=== PATIENT | female | born 1950 | race Caucasian/White ===

== ENCOUNTER 2017-12-16 17:53 | Inpatient (IN) | payer MEDICARE, MEDICAID ==
[~2017-12-16] VITALS: Ht 162.6 cm; Wt 58.5 kg
[2017-12-16 22:15] VITALS: BP 128/55
[2017-12-16] MEDS ORDERED: GLIM4TAB3 PO (22:44)
[2017-12-16] MEDS ORDERED: LEVO50TA8 PO (22:44)
[2017-12-16] MEDS ORDERED: LINA5TAB PO (22:44)
[2017-12-16] MEDS ORDERED: FERR325T23 PO (22:44)
[2017-12-16] MEDS ORDERED: CHOL50002 PO (22:44)
[2017-12-16] MEDS ORDERED: ESOM40CA PO ×2 (22:44)
[2017-12-16] MEDS ORDERED: ATOR20TA PO (22:44)
[2017-12-16] MEDS ORDERED: ICOS1CAP PO (22:44)
[2017-12-16] MEDS ORDERED: PIOG15TA8 PO (22:44)
[2017-12-16] MEDS ORDERED: VALS320T2 PO (22:44)
[2017-12-16] MEDS ORDERED: METF-440 PO (22:44)
[2017-12-16] MEDS ORDERED: CARV20CP PO (22:44)
[2017-12-17] MEDS ORDERED: ONDANSETRON 4 MG/2 ML VIAL IV PRN (00:15)
[2017-12-17] MEDS ORDERED: ZOLPIDEM 5 MG TABLET PO PRN (00:15)
[2017-12-17] MEDS ORDERED: Z GUARD REMEDY PASTE 57 GM TUBE TOP PRN (00:15)
[2017-12-17] MEDS ORDERED: MAGNESIUM HYDROXIDE 30 ML LIQUID UDC PO PRN (00:15)
[2017-12-17] MEDS ORDERED: ACETAMINOPHEN 325 MG TABLET PO PRN (00:15)
[2017-12-17 05:26] VITALS: BP 124/64
[2017-12-17] MEDS: LEVOTHYROXINE SODIUM 50 MCG TABLET PO SCH ×2 (07:00→07:30)
[2017-12-17] MEDS ORDERED: LEVOTHYROXINE SODIUM 50 MCG TABLET PO SCH (07:30)
[2017-12-17] MEDS ORDERED: PANTOPRAZOLE SODIUM 40 MG TABLET.DR PO SCH (07:30)
[2017-12-17] MEDS: FERROUS SULFATE 325 MG TABEC PO SCH (08:47)
[2017-12-17] MEDS: LINAGLIPTIN 5 MG TABLET PO SCH (08:47)
[2017-12-17] MEDS: GLIMEPIRIDE 2 MG TABLET PO SCH (08:48)
[2017-12-17] MEDS: CARVEDILOL 6.25 MG TABLET PO SCH ×2 (08:48→18:12)
[2017-12-17] MEDS ORDERED: Medication Not On Formulary EA (Icosapent Ethyl (Vascepa) 1 GM) PO SCH (09:00)
[2017-12-17] MEDS ORDERED: VALSARTAN 160 MG TABLET PO SCH (09:00)
[2017-12-17] MEDS ORDERED: CHOLECALCIFEROL PO SCH (09:00)
[2017-12-17] MEDS: PIOGLITAZONE HCL 15 MG TABLET PO SCH (10:08)
[2017-12-17] MEDS ORDERED: CHOL10002 PO (16:13)
[2017-12-17] MEDS ORDERED: METF500T PO (16:22)
[2017-12-17] MEDS ORDERED: METF-440 PO (16:22)
[2017-12-17 16:37] VITALS: BP 122/65
[2017-12-17] MEDS: METFORMIN HCL 500 MG TABLET PO SCH (18:04)
[2017-12-17] MEDS: DOCUSATE SODIUM 100 MG CAPSULE PO SCH (20:25)
[2017-12-17] MEDS: ATORVASTATIN 20 MG TABLET PO SCH (20:25)
[2017-12-17 20:39] VITALS: BP 101/57
[2017-12-18] MEDS: LEVOTHYROXINE SODIUM 50 MCG TABLET PO SCH (06:30)
[2017-12-18] MEDS: PANTOPRAZOLE SODIUM 40 MG TABLET.DR PO SCH (06:30)
[2017-12-18 06:50] VITALS: BP 100/60
[2017-12-18] MEDS ORDERED: BLOOD SUGAR DIAGNOSTIC 1 EACH STRIP VI SCH (07:00)
[2017-12-18 08:00] VITALS: BP 115/63
[2017-12-18] MEDS: FERROUS SULFATE 325 MG TABEC PO SCH (08:48)
[2017-12-18] MEDS: CHOLECALCIFEROL 1,000 UNIT TABLET PO SCH (08:48)
[2017-12-18] MEDS: LINAGLIPTIN 5 MG TABLET PO SCH (08:48)
[2017-12-18] MEDS: GLIMEPIRIDE 2 MG TABLET PO SCH (08:49)
[2017-12-18] MEDS: PIOGLITAZONE HCL 15 MG TABLET PO SCH (08:50)
[2017-12-18] MEDS ORDERED: LOSARTAN POTASSIUM 50 MG TABLET PO SCH (09:00)
[2017-12-18] MEDS: CARVEDILOL 6.25 MG TABLET PO SCH ×2 (10:32→17:30)
[2017-12-18] MEDS: VALSARTAN 160 MG TABLET PO SCH (10:32)
[2017-12-18 17:06] VITALS: BP 95/49
[2017-12-18] MEDS: METFORMIN HCL 500 MG TABLET PO SCH (17:29)
[2017-12-18 20:00] VITALS: BP 89/42
[2017-12-18] MEDS: ATORVASTATIN 20 MG TABLET PO SCH (20:50)
[2017-12-18] MEDS: DOCUSATE SODIUM 100 MG CAPSULE PO SCH (20:52)
[2017-12-19 06:04] VITALS: BP 122/55
[2017-12-19] MEDS: PANTOPRAZOLE SODIUM 40 MG TABLET.DR PO SCH (06:28)
[2017-12-19] MEDS: LEVOTHYROXINE SODIUM 50 MCG TABLET PO SCH (06:30)
[2017-12-19 07:20] LABS: HEMATOCRIT 31.8 % (31.2-41.9); HEMOGLOBIN 10.8 g/dL (10.9-14.3); MEAN CORPUSCULAR HGB CONC 34 g/dL (32.3-35.6); MEAN CORPUSCULAR VOLUME 88.2 fL (75.5-95.3); NEUTROPHILS % (AUTO) 67.9 % (38.5-71.5); PLATELET COUNT (AUTO) 183 K/uL (179-408); WHITE BLOOD COUNT (AUTO) 12.1 K/uL (3.8-11.8)
[2017-12-19 07:21] LABS: BASOPHILS # (AUTO) 0.1 K/uL (0.0-8.0); BASOPHILS % (AUTO) 0.8 % (0.0-2.0); EOSINOPHILS # (AUTO) 0.4 K/uL (0.0-0.7); EOSINOPHILS % (AUTO) 3.2 % (0.0-7.0); LYMPHOCYTES # (AUTO) 2.6 K/uL (20.0-40.0); MONOCYTES # (AUTO) 0.9 K/uL (2.0-10.0); MONOCYTES % (AUTO) 7.1 % (0.0-11.0); NEUTROPHILS # (AUTO) 8.2 K/uL (1.8-8.9)
[2017-12-19 07:32] LABS: CREATININE 0.9 mg/dL (0.6-1.3); POTASSIUM 3.8 mmol/L (3.5-5.1)
[2017-12-19 08:00] VITALS: BP 123/69
[2017-12-19] MEDS: CHOLECALCIFEROL 1,000 UNIT TABLET PO SCH (09:05)
[2017-12-19] MEDS: GLIMEPIRIDE 2 MG TABLET PO SCH (09:06)
[2017-12-19] MEDS: LINAGLIPTIN 5 MG TABLET PO SCH (09:06)
[2017-12-19] MEDS: FERROUS SULFATE 325 MG TABEC PO SCH (09:06)
[2017-12-19] MEDS: VALSARTAN 160 MG TABLET PO SCH (09:07)
[2017-12-19] MEDS: CARVEDILOL 6.25 MG TABLET PO SCH ×2 (09:08→17:26)
[2017-12-19] MEDS: PIOGLITAZONE HCL 15 MG TABLET PO SCH (09:08)
[2017-12-19] MEDS ORDERED: VALS320T2 PO (15:05)
[2017-12-19 15:50] VITALS: BP 87/48
[2017-12-19] MEDS: METFORMIN HCL 500 MG TABLET PO SCH (17:25)
[2017-12-19] MEDS: DOCUSATE SODIUM 100 MG CAPSULE PO SCH (20:36)
[2017-12-19] MEDS: ATORVASTATIN 20 MG TABLET PO SCH (20:36)
[2017-12-19 21:03] VITALS: BP 93/45
[2017-12-20 04:30] VITALS: BP 107/49
[2017-12-20] MEDS: PANTOPRAZOLE SODIUM 40 MG TABLET.DR PO SCH (06:15)
[2017-12-20] MEDS: LEVOTHYROXINE SODIUM 50 MCG TABLET PO SCH (06:30)
[2017-12-20 08:00] VITALS: BP 141/72
[2017-12-20] MEDS: PIOGLITAZONE HCL 15 MG TABLET PO SCH (09:30)
[2017-12-20] MEDS: LINAGLIPTIN 5 MG TABLET PO SCH (09:31)
[2017-12-20] MEDS: FERROUS SULFATE 325 MG TABEC PO SCH (09:31)
[2017-12-20] MEDS: GLIMEPIRIDE 2 MG TABLET PO SCH (09:31)
[2017-12-20] MEDS: CARVEDILOL 6.25 MG TABLET PO SCH ×2 (09:32→19:12)
[2017-12-20] MEDS: CHOLECALCIFEROL 1,000 UNIT TABLET PO SCH (09:32)
[2017-12-20] MEDS: VALSARTAN 160 MG TABLET PO SCH (09:33)
[2017-12-20 15:47] VITALS: BP 105/55
[2017-12-20] MEDS: METFORMIN HCL 500 MG TABLET PO SCH (19:11)
[2017-12-20 20:03] VITALS: BP 99/50
[2017-12-20] MEDS: ATORVASTATIN 20 MG TABLET PO SCH (20:15)
[2017-12-20] MEDS: DOCUSATE SODIUM 100 MG CAPSULE PO SCH (20:21)
[2017-12-21] MEDS: PANTOPRAZOLE SODIUM 40 MG TABLET.DR PO SCH (06:00)
[2017-12-21 06:42] VITALS: BP 139/65
[2017-12-21] MEDS: LEVOTHYROXINE SODIUM 50 MCG TABLET PO SCH (06:51)
[2017-12-21 07:47] LABS: BASOPHILS # (AUTO) 0.1 K/uL (0.0-8.0); EOSINOPHILS # (AUTO) 0.2 K/uL (0.0-0.7); EOSINOPHILS % (AUTO) 2.8 % (0.0-7.0); HEMATOCRIT 31.1 % (31.2-41.9); HEMOGLOBIN 10.8 g/dL (10.9-14.3); LYMPHOCYTES % (AUTO) 22.9 % (20.5-51.5); MEAN CORPUSCULAR HEMOGLOBIN 30.4 uug (24.7-32.8); MEAN CORPUSCULAR HGB CONC 35 g/dL (32.3-35.6); MEAN CORPUSCULAR VOLUME 87.8 fL (75.5-95.3); MONOCYTES # (AUTO) 0.6 K/uL (2.0-10.0); NEUTROPHILS # (AUTO) 5.7 K/uL (1.8-8.9); NEUTROPHILS % (AUTO) 66.3 % (38.5-71.5); PLATELET COUNT (AUTO) 180 K/uL (179-408); RED BLOOD CELL COUNT(AUTO) 3.54 MIL/uL (3.63-4.92); WHITE BLOOD COUNT (AUTO) 8.6 K/uL (3.8-11.8)
[2017-12-21 07:52] LABS: CREATININE 0.8 mg/dL (0.6-1.3); POTASSIUM 3.9 mmol/L (3.5-5.1)
[2017-12-21] MEDS: LINAGLIPTIN 5 MG TABLET PO SCH (08:20)
[2017-12-21] MEDS: CARVEDILOL 6.25 MG TABLET PO SCH ×2 (08:32→17:01)
[2017-12-21] MEDS: GLIMEPIRIDE 2 MG TABLET PO SCH (08:34)
[2017-12-21] MEDS: CHOLECALCIFEROL 1,000 UNIT TABLET PO SCH (08:34)
[2017-12-21] MEDS: PIOGLITAZONE HCL 15 MG TABLET PO SCH (08:35)
[2017-12-21] MEDS: VALSARTAN 160 MG TABLET PO SCH (08:35)
[2017-12-21] MEDS: FERROUS SULFATE 325 MG TABEC PO SCH (08:36)
[2017-12-21 15:24] VITALS: BP 109/61
[2017-12-21] MEDS: METFORMIN HCL 500 MG TABLET PO SCH (17:01)
[2017-12-21] MEDS: DOCUSATE SODIUM 100 MG CAPSULE PO SCH (20:11)
[2017-12-21] MEDS: ATORVASTATIN 20 MG TABLET PO SCH (20:11)
[2017-12-21 20:43] VITALS: BP 100/49
[2017-12-22 06:03] VITALS: BP 126/60
[2017-12-22] MEDS: PANTOPRAZOLE SODIUM 40 MG TABLET.DR PO SCH (06:32)
[2017-12-22] MEDS: LEVOTHYROXINE SODIUM 50 MCG TABLET PO SCH (06:32)
[2017-12-22] MEDS: FERROUS SULFATE 325 MG TABEC PO SCH (08:14)
[2017-12-22] MEDS: LINAGLIPTIN 5 MG TABLET PO SCH (08:14)
[2017-12-22] MEDS: CHOLECALCIFEROL 1,000 UNIT TABLET PO SCH (08:16)
[2017-12-22] MEDS: CARVEDILOL 6.25 MG TABLET PO SCH ×2 (08:16→17:03)
[2017-12-22] MEDS: VALSARTAN 160 MG TABLET PO SCH (08:16)
[2017-12-22] MEDS: GLIMEPIRIDE 2 MG TABLET PO SCH (08:17)
[2017-12-22] MEDS: PIOGLITAZONE HCL 15 MG TABLET PO SCH (08:17)
[2017-12-22] MEDS: METFORMIN HCL 500 MG TABLET PO SCH (17:03)
[2017-12-22 17:24] VITALS: BP 98/52
[2017-12-22 20:14] VITALS: BP 110/54
[2017-12-22] MEDS: ATORVASTATIN 20 MG TABLET PO SCH (20:24)
[2017-12-22] MEDS: DOCUSATE SODIUM 100 MG CAPSULE PO SCH (20:24)
[2017-12-23 05:06] VITALS: BP 117/67
[2017-12-23] MEDS: PANTOPRAZOLE SODIUM 40 MG TABLET.DR PO SCH (06:43)
[2017-12-23] MEDS: LEVOTHYROXINE SODIUM 50 MCG TABLET PO SCH (06:43)
[2017-12-23] MEDS: FERROUS SULFATE 325 MG TABEC PO SCH (08:11)
[2017-12-23] MEDS: VALSARTAN 160 MG TABLET PO SCH (08:11)
[2017-12-23] MEDS: PIOGLITAZONE HCL 15 MG TABLET PO SCH (08:13)
[2017-12-23] MEDS: CARVEDILOL 6.25 MG TABLET PO SCH ×2 (08:13→16:42)
[2017-12-23] MEDS: LINAGLIPTIN 5 MG TABLET PO SCH (08:13)
[2017-12-23] MEDS: GLIMEPIRIDE 2 MG TABLET PO SCH (08:14)
[2017-12-23] MEDS: CHOLECALCIFEROL 1,000 UNIT TABLET PO SCH (08:14)
[2017-12-23 08:35] LABS: BASOPHILS # (AUTO) 0.1 K/uL (0.0-8.0); BASOPHILS % (AUTO) 0.6 % (0.0-2.0); EOSINOPHILS # (AUTO) 0.5 K/uL (0.0-0.7); EOSINOPHILS % (AUTO) 4.9 % (0.0-7.0); HEMATOCRIT 31.1 % (31.2-41.9); HEMOGLOBIN 10.6 g/dL (10.9-14.3); LYMPHOCYTES # (AUTO) 2.2 K/uL (20.0-40.0); LYMPHOCYTES % (AUTO) 22.4 % (20.5-51.5); MEAN CORPUSCULAR HEMOGLOBIN 30.4 uug (24.7-32.8); MEAN CORPUSCULAR HGB CONC 34 g/dL (32.3-35.6); MEAN CORPUSCULAR VOLUME 88.8 fL (75.5-95.3); MONOCYTES # (AUTO) 0.8 K/uL (2.0-10.0); MONOCYTES % (AUTO) 7.9 % (0.0-11.0); NEUTROPHILS # (AUTO) 6.3 K/uL (1.8-8.9); NEUTROPHILS % (AUTO) 64.2 % (38.5-71.5); PLATELET COUNT (AUTO) 182 K/uL (179-408); WHITE BLOOD COUNT (AUTO) 9.8 K/uL (3.8-11.8)
[2017-12-23 08:47] LABS: CREATININE 0.9 mg/dL (0.6-1.3)
[2017-12-23] MEDS: METFORMIN HCL 500 MG TABLET PO SCH (16:43)
[2017-12-23 20:00] VITALS: BP 90/47
[2017-12-23] MEDS: ATORVASTATIN 20 MG TABLET PO SCH (20:30)
[2017-12-23] MEDS: DOCUSATE SODIUM 100 MG CAPSULE PO SCH (20:30)
[2017-12-24] MEDS: LEVOTHYROXINE SODIUM 50 MCG TABLET PO SCH (06:35)
[2017-12-24] MEDS: PANTOPRAZOLE SODIUM 40 MG TABLET.DR PO SCH (06:35)
[2017-12-24 08:00] VITALS: BP 148/67
[2017-12-24] MEDS: ASPIRIN 81 MG TAB.CHEW PO SCH (09:00)
[2017-12-24] MEDS: CHOLECALCIFEROL 1,000 UNIT TABLET PO SCH (09:00)
[2017-12-24] MEDS: VALSARTAN 160 MG TABLET PO SCH (09:01)
[2017-12-24] MEDS: GLIMEPIRIDE 2 MG TABLET PO SCH (09:02)
[2017-12-24] MEDS: LINAGLIPTIN 5 MG TABLET PO SCH (09:02)
[2017-12-24] MEDS: FERROUS SULFATE 325 MG TABEC PO SCH (09:02)
[2017-12-24] MEDS: CARVEDILOL 6.25 MG TABLET PO SCH ×2 (09:02→17:18)
[2017-12-24] MEDS: PIOGLITAZONE HCL 15 MG TABLET PO SCH (09:03)
[2017-12-24 16:00] VITALS: BP 110/64
[2017-12-24] MEDS: METFORMIN HCL 500 MG TABLET PO SCH (17:18)
[2017-12-24 20:20] VITALS: BP 102/56
[2017-12-24] MEDS: DOCUSATE SODIUM 100 MG CAPSULE PO SCH (20:27)
[2017-12-24] MEDS: ATORVASTATIN 20 MG TABLET PO SCH (20:27)
[2017-12-25 05:24] VITALS: BP 146/63
[2017-12-25] MEDS: PANTOPRAZOLE SODIUM 40 MG TABLET.DR PO SCH (06:12)
[2017-12-25] MEDS: LEVOTHYROXINE SODIUM 50 MCG TABLET PO SCH (06:12)
[2017-12-25 07:49] LABS: *BILIRUBIN,URIN NEGATIVE (NEGATIVE); *BLOOD, URINE NEGATIVE (NEGATIVE); *CLARITY,URINE CLEAR (CLEAR); *COLOR,URINE YELLOW (YELLOW); *KETONES,URINE NEGATIVE (NEGATIVE); *PROTEIN,URINE NEGATIVE (NEGATIVE); *UROBILINOGEN,URINE 0.2 E.U./dl (NORMAL); LEUKOCYTE ESTERASE ,URINE 2+ (NEGATIVE); NITRITE, URINE POSITIVE (NEGATIVE); UGLUCOSE NEGATIVE (NEGATIVE)
[2017-12-25] MEDS: PIOGLITAZONE HCL 15 MG TABLET PO SCH (08:11)
[2017-12-25] MEDS: LINAGLIPTIN 5 MG TABLET PO SCH (08:12)
[2017-12-25] MEDS: CARVEDILOL 6.25 MG TABLET PO SCH ×2 (08:12→17:04)
[2017-12-25] MEDS: GLIMEPIRIDE 2 MG TABLET PO SCH (08:12)
[2017-12-25] MEDS: CHOLECALCIFEROL 1,000 UNIT TABLET PO SCH (08:12)
[2017-12-25] MEDS: VALSARTAN 160 MG TABLET PO SCH (08:13)
[2017-12-25] MEDS: ASPIRIN 81 MG TAB.CHEW PO SCH (08:13)
[2017-12-25] MEDS: FERROUS SULFATE 325 MG TABEC PO SCH (08:13)
[2017-12-25 08:23] LABS: BACTERIA,URINE MANY /HPF (NONE SEEN); RBC,URINE 0-3 /HPF (0-3); SQUAMOUS EPITHELIAL CELL,UR FEW /HPF (NONE SEEN)
[2017-12-25] MEDS: METFORMIN HCL 500 MG TABLET PO SCH (17:03)
[2017-12-25 20:00] VITALS: BP 119/60
[2017-12-25] MEDS: ATORVASTATIN 20 MG TABLET PO SCH (20:21)
[2017-12-25] MEDS: DOCUSATE SODIUM 100 MG CAPSULE PO SCH (20:21)
[2017-12-26] MEDS: PANTOPRAZOLE SODIUM 40 MG TABLET.DR PO SCH (06:31)
[2017-12-26] MEDS: LEVOTHYROXINE SODIUM 50 MCG TABLET PO SCH (06:31)
[2017-12-26 07:26] LABS: BASOPHILS # (AUTO) 0.1 K/uL (0.0-8.0); EOSINOPHILS # (AUTO) 0.4 K/uL (0.0-0.7); EOSINOPHILS % (AUTO) 4.1 % (0.0-7.0); HEMATOCRIT 30.7 % (31.2-41.9); HEMOGLOBIN 10.5 g/dL (10.9-14.3); LYMPHOCYTES # (AUTO) 2.3 K/uL (20.0-40.0); LYMPHOCYTES % (AUTO) 26.1 % (20.5-51.5); MEAN CORPUSCULAR HEMOGLOBIN 30.2 uug (24.7-32.8); MEAN CORPUSCULAR HGB CONC 34 g/dL (32.3-35.6); MEAN CORPUSCULAR VOLUME 88.6 fL (75.5-95.3); MONOCYTES # (AUTO) 0.7 K/uL (2.0-10.0); MONOCYTES % (AUTO) 8.1 % (0.0-11.0); NEUTROPHILS # (AUTO) 5.4 K/uL (1.8-8.9); NEUTROPHILS % (AUTO) 60.7 % (38.5-71.5); PLATELET COUNT (AUTO) 184 K/uL (179-408); RED BLOOD CELL COUNT(AUTO) 3.47 MIL/uL (3.63-4.92); WHITE BLOOD COUNT (AUTO) 8.9 K/uL (3.8-11.8)
[2017-12-26 07:45] LABS: THYROID STIMULATING HORMONE 1.625 mIU/mL (0.358-3.740)
[2017-12-26 08:06] LABS: BILIRUBIN,TOTAL 0.3 mg/dL (0.2-1.0); CREATININE 0.8 mg/dL (0.6-1.3); MAGNESIUM 1.6 mg/dL (1.8-2.4); PHOSPHOROUS 3.4 mg/dL (2.5-4.9); POTASSIUM 3.8 mmol/L (3.5-5.1); TOTAL PROTEIN, SERUM 6.3 g/dL (6.4-8.2)
[2017-12-26] MEDS: CHOLECALCIFEROL 1,000 UNIT TABLET PO SCH (08:51)
[2017-12-26] MEDS: PIOGLITAZONE HCL 15 MG TABLET PO SCH (08:51)
[2017-12-26] MEDS: FERROUS SULFATE 325 MG TABEC PO SCH (08:52)
[2017-12-26] MEDS: GLIMEPIRIDE 2 MG TABLET PO SCH (08:54)
[2017-12-26] MEDS: ASPIRIN 81 MG TAB.CHEW PO SCH (08:54)
[2017-12-26] MEDS: LINAGLIPTIN 5 MG TABLET PO SCH (08:55)
[2017-12-26] MEDS: VALSARTAN 160 MG TABLET PO SCH (08:56)
[2017-12-26] MEDS: CARVEDILOL 6.25 MG TABLET PO SCH ×2 (08:57→17:10)
[2017-12-26] MEDS: NITROFURANTOIN/NITROFURAN MAC 100 MG CAPSULE PO SCH ×2 (09:30→21:04)
[2017-12-26] MEDS ORDERED: MAGNESIUM OXIDE 400 MG TABLET PO ONE (15:45)
[2017-12-26] MEDS: METFORMIN HCL 500 MG TABLET PO SCH (17:09)
[2017-12-26 19:30] VITALS: BP 102/47
[2017-12-26] MEDS: DOCUSATE SODIUM 100 MG CAPSULE PO SCH (21:04)
[2017-12-26] MEDS: ATORVASTATIN 20 MG TABLET PO SCH (21:04)
[2017-12-26] MEDS ORDERED: DEXTROSE 50% 50 ML DISP.SYRIN IV PRN (21:30)
[2017-12-26] MEDS ORDERED: INSULIN REGULAR, HUMAN 300 UNIT/3 ML VIAL SQ PRN (21:30)
[2017-12-27 04:00] VITALS: BP 150/62
[2017-12-27] MEDS: BLOOD SUGAR DIAGNOSTIC 1 EACH STRIP VI SCH ×4 (06:38→20:27)
[2017-12-27] MEDS: PANTOPRAZOLE SODIUM 40 MG TABLET.DR PO SCH (06:38)
[2017-12-27] MEDS: LEVOTHYROXINE SODIUM 50 MCG TABLET PO SCH (06:38)
[2017-12-27] MEDS: CHOLECALCIFEROL 1,000 UNIT TABLET PO SCH (08:44)
[2017-12-27] MEDS: GLIMEPIRIDE 4 MG TABLET PO SCH (08:44)
[2017-12-27] MEDS: LINAGLIPTIN 5 MG TABLET PO SCH (08:44)
[2017-12-27] MEDS: METFORMIN HCL 500 MG TABLET PO SCH ×2 (08:44→17:13)
[2017-12-27] MEDS: FERROUS SULFATE 325 MG TABEC PO SCH (08:44)
[2017-12-27] MEDS: ASPIRIN 81 MG TAB.CHEW PO SCH (08:44)
[2017-12-27] MEDS: CARVEDILOL 6.25 MG TABLET PO SCH ×2 (08:45→17:13)
[2017-12-27] MEDS: PIOGLITAZONE HCL 15 MG TABLET PO SCH (08:45)
[2017-12-27] MEDS: VALSARTAN 160 MG TABLET PO SCH (08:45)
[2017-12-27] MEDS: NITROFURANTOIN/NITROFURAN MAC 100 MG CAPSULE PO SCH ×2 (08:45→20:23)
[2017-12-27 09:00] VITALS: BP 130/75
[2017-12-27 16:25] VITALS: BP 131/64
[2017-12-27 19:43] VITALS: BP 95/47
[2017-12-27] MEDS: DOCUSATE SODIUM 100 MG CAPSULE PO SCH (20:23)
[2017-12-27] MEDS: ATORVASTATIN 20 MG TABLET PO SCH (20:23)
[2017-12-28 05:00] VITALS: BP 135/69
[2017-12-28] MEDS: PANTOPRAZOLE SODIUM 40 MG TABLET.DR PO SCH (06:52)
[2017-12-28] MEDS: LEVOTHYROXINE SODIUM 50 MCG TABLET PO SCH (06:52)
[2017-12-28] MEDS: BLOOD SUGAR DIAGNOSTIC 1 EACH STRIP VI SCH ×4 (06:55→21:52)
[2017-12-28] MEDS: CHOLECALCIFEROL 1,000 UNIT TABLET PO SCH (08:37)
[2017-12-28] MEDS: LINAGLIPTIN 5 MG TABLET PO SCH (08:39)
[2017-12-28] MEDS: VALSARTAN 160 MG TABLET PO SCH (08:39)
[2017-12-28] MEDS: FERROUS SULFATE 325 MG TABEC PO SCH (08:40)
[2017-12-28] MEDS: ASPIRIN 81 MG TAB.CHEW PO SCH (08:40)
[2017-12-28] MEDS: METFORMIN HCL 500 MG TABLET PO SCH ×2 (08:41→16:51)
[2017-12-28] MEDS: GLIMEPIRIDE 4 MG TABLET PO SCH (08:41)
[2017-12-28] MEDS: NITROFURANTOIN/NITROFURAN MAC 100 MG CAPSULE PO SCH ×2 (08:43→20:59)
[2017-12-28] MEDS: CARVEDILOL 6.25 MG TABLET PO SCH ×2 (08:43→16:51)
[2017-12-28] MEDS: PIOGLITAZONE HCL 15 MG TABLET PO SCH (08:43)
[2017-12-28 15:46] VITALS: BP 99/50
[2017-12-28 20:00] VITALS: BP 99/53
[2017-12-28] MEDS: ATORVASTATIN 20 MG TABLET PO SCH (20:59)
[2017-12-28] MEDS: DOCUSATE SODIUM 100 MG CAPSULE PO SCH (20:59)
[2017-12-29 04:00] VITALS: BP 139/74
[2017-12-29] MEDS: PANTOPRAZOLE SODIUM 40 MG TABLET.DR PO SCH (06:05)
[2017-12-29] MEDS: BLOOD SUGAR DIAGNOSTIC 1 EACH STRIP VI SCH ×2 (06:33→12:11)
[2017-12-29] MEDS: LEVOTHYROXINE SODIUM 50 MCG TABLET PO SCH (06:33)
[2017-12-29] MEDS: CHOLECALCIFEROL 1,000 UNIT TABLET PO SCH (08:52)
[2017-12-29] MEDS: FERROUS SULFATE 325 MG TABEC PO SCH (08:54)
[2017-12-29] MEDS: LINAGLIPTIN 5 MG TABLET PO SCH (08:54)
[2017-12-29] MEDS: GLIMEPIRIDE 4 MG TABLET PO SCH (08:55)
[2017-12-29] MEDS: METFORMIN HCL 500 MG TABLET PO SCH (08:55)
[2017-12-29] MEDS: PIOGLITAZONE HCL 15 MG TABLET PO SCH (08:55)
[2017-12-29] MEDS: ASPIRIN 81 MG TAB.CHEW PO SCH (08:55)
[2017-12-29] MEDS: CARVEDILOL 6.25 MG TABLET PO SCH (08:56)
[2017-12-29] MEDS: NITROFURANTOIN/NITROFURAN MAC 100 MG CAPSULE PO SCH (08:56)
[2017-12-29] MEDS ORDERED: VALSARTAN 160 MG TABLET PO SCH (09:00)
[2017-12-29 15:57] VITALS: BP 141/63
== END 2017-12-29 16:50 | disposition home health service (06) | DRG 949 ==
PROVIDERS: ADMIT Physical Medicine & Rehabilitation Pain Medicine; ATTEND Physical Medicine & Rehabilitation Pain Medicine
DX: S06.6X9D Traumatic subarachnoid hemorrhage with loss of consciousness of unspecified duration, subsequent encounter (principal); N39.0 Urinary tract infection, site not specified; D68.59 Other primary thrombophilia; G93.40 Encephalopathy, unspecified; W19.XXXD Unspecified fall, subsequent encounter; E03.9 Hypothyroidism, unspecified; E11.9 Type 2 diabetes mellitus without complications; E78.5 Hyperlipidemia, unspecified; F03.90 Unspecified dementia, unspecified severity, without behavioral disturbance, psychotic disturbance, mood disturbance, and anxiety; I10 Essential (primary) hypertension; I25.10 Atherosclerotic heart disease of native coronary artery without angina pectoris; R29.6 Repeated falls; B96.20 Unspecified Escherichia coli [E. coli] as the cause of diseases classified elsewhere; D64.9 Anemia, unspecified; Z91.81 History of falling; R26.81 Unsteadiness on feet; Z90.49 Acquired absence of other specified parts of digestive tract; R53.1 Weakness
CPT/HCPCS: 36415; 70030-TC; 82652; 83735; 84100; 84443; 85025; 87077; 87086; 92523; 97110; 97112; 97116; 97530; 97535; J1815

== ENCOUNTER 2018-03-20 18:26 | Inpatient (IN) | payer MEDICARE, MEDICAID ==
[~2018-03-20] VITALS: Ht 162.6 cm; Wt 56.7 kg
[~2018-03-20 18:26] MED LIST: ATOR20TA PO; CARV20CP PO; CHOL10002 PO; ESOM40CA PO; FERR325T23 PO; GLIM4TAB3 PO; LEVO50TA8 PO; LINA5TAB PO; METF-440 PO; METF500T PO; PIOG15TA8 PO; VALS320T2 PO
[2018-03-20 18:55] VITALS: BP 133/65
[2018-03-20] MEDS ORDERED: MAGNESIUM HYDROXIDE 30 ML LIQUID UDC PO PRN (19:00)
[2018-03-20] MEDS ORDERED: Z GUARD REMEDY PASTE 57 GM TUBE TOP PRN (19:00)
--- NOTE | 2018-03-20 19:02 | NUR ---
Patient arrived to unit at 1805 via [facility] and [facility], vitals:133/65, 95% on room air, 20 respirations, 82 pulse, 98.2 temperature, complaints of pelvic pain on right side, declines pain medication, no signs of distress noted, MRSA swab collected at this time, pictures of stage 2 wound to sacrum taken and placed in chart, pictures of debrided wound of right wynne taken and placed in chart, distention in pelvic area noted and picture placed in chart, no complaints of pelvic pain noted on palpation, abdomen is soft, chinchilla catheter is patent and draining yellow/clear urine. will endorse to operations supervisor 2nd shift nurse
[2018-03-20] MEDS ORDERED: ASPI-605 PO (20:11)
[2018-03-20] MEDS ORDERED: MAGN250T37 PO (20:11)
[2018-03-20] MEDS ORDERED: GLIM2TAB2 PO (20:11)
[2018-03-20] MEDS ORDERED: OMEG1CAP PO (20:11)
[2018-03-20] MEDS ORDERED: ENOX40DI SQ (20:15)
[2018-03-20] MEDS ORDERED: ACET-2154 PO (20:15)
[2018-03-20 20:29] VITALS: BP 125/62
[2018-03-20] MEDS: DOCUSATE SODIUM 100 MG CAPSULE PO SCH (21:00)
--- NOTE | 2018-03-20 21:00 | NUR ---
DR SILVER WAS CALLED AND NOTIFIED OF PT'S ADMISSION AND REQUESTED TO HAVE THE MEDICATION RECONCILED. DR SILVER REVIEWED MEDICATION AND STATED THAT HE WILL RECONCILE IN AM.
[2018-03-21 06:06] VITALS: BP 127/58
--- NOTE | 2018-03-21 06:39 | NUR ---
pt slept well through the night and was easily awoken, pt complained of pain with movement but refused any medication at this time. pt able to move around bed with moderate assistance. pt denies having any difficulty breathing. Leggett is intact and patent, draining yellow urine. all needs met, safety measures are in place, call light within reach, bed alarm is on. plan of care reported to the incoming nurse.
[2018-03-21 08:00] VITALS: BP 132/72
[2018-03-21] MEDS: ACETAMINOPHEN 325 MG TABLET PO PRN (08:35)
[2018-03-21] MEDS ORDERED: DEXTROSE 50% 50 ML DISP.SYRIN IV PRN ×2 (11:00→12:00)
[2018-03-21] MEDS ORDERED: INSULIN REGULAR, HUMAN 300 UNIT/3 ML VIAL SQ PRN (12:00)
[2018-03-21] MEDS: BLOOD SUGAR DIAGNOSTIC 1 EACH STRIP VI SCH ×3 (12:06→20:53)
[2018-03-21] MEDS: VALSARTAN 160 MG TABLET PO SCH (12:11)
[2018-03-21] MEDS: INSULIN REGULAR, HUMAN 300 UNIT/3 ML VIAL SQ PRN ×3 (13:05→21:00)
[2018-03-21 16:00] VITALS: BP 125/64
[2018-03-21] MEDS ORDERED: BLOOD SUGAR DIAGNOSTIC 1 EACH STRIP VI SCH (16:30)
[2018-03-21] MEDS: FERROUS SULFATE 325 MG TABEC PO SCH (17:40)
[2018-03-21] MEDS: CARVEDILOL 3.125 MG TABLET PO SCH (17:41)
[2018-03-21] MEDS: MAGNESIUM OXIDE 250 MG TABLET PO SCH (17:42)
[2018-03-21 19:30] VITALS: BP 104/60
--- NOTE | 2018-03-21 19:30 | NUR ---
Received patient in bed. Alert and verbally responsive. Able to make needs known. Denies any pain and discomfort at this time. No acute distres. NO SOB. Leggett catheter patent and intact. Draining clear yellow urine. Kept clean and dry. All needs attended to promptly. Call light within reach. Will continue to monitor.
[2018-03-21] MEDS: ATORVASTATIN 20 MG TABLET PO SCH (20:50)
[2018-03-21] MEDS: DOCUSATE SODIUM 100 MG CAPSULE PO SCH (20:50)
[2018-03-21] MEDS: ENOXAPARIN SODIUM 40 MG/0.4 ML DISP.SYRIN SQ SCH (20:51)
[2018-03-22 04:30] VITALS: BP 108/63
[2018-03-22] MEDS: PANTOPRAZOLE SODIUM 40 MG TABLET.DR PO SCH (06:44)
[2018-03-22] MEDS: LEVOTHYROXINE SODIUM 50 MCG TABLET PO SCH (06:44)
[2018-03-22] MEDS: BLOOD SUGAR DIAGNOSTIC 1 EACH STRIP VI SCH ×4 (06:44→20:36)
[2018-03-22 07:19] LABS: BASOPHILS # (AUTO) 0.1 K/uL (0.0-8.0); EOSINOPHILS # (AUTO) 0.3 K/uL (0.0-0.7); EOSINOPHILS % (AUTO) 3.5 % (0.0-7.0); HEMATOCRIT 25.2 % (31.2-41.9); HEMOGLOBIN 8.8 g/dL (10.9-14.3); LYMPHOCYTES # (AUTO) 1.6 K/uL (20.0-40.0); LYMPHOCYTES % (AUTO) 19.4 % (20.5-51.5); MEAN CORPUSCULAR HGB CONC 35 g/dL (32.3-35.6); MEAN CORPUSCULAR VOLUME 86.2 fL (75.5-95.3); MONOCYTES # (AUTO) 0.9 K/uL (2.0-10.0); MONOCYTES % (AUTO) 11.1 % (0.0-11.0); NEUTROPHILS # (AUTO) 5.5 K/uL (1.8-8.9); PLATELET COUNT (AUTO) 161 K/uL (179-408); RED BLOOD CELL COUNT(AUTO) 2.92 MIL/uL (3.63-4.92); WHITE BLOOD COUNT (AUTO) 8.4 K/uL (3.8-11.8)
[2018-03-22 07:40] LABS: BILIRUBIN,TOTAL 0.4 mg/dL (0.2-1.0); CREATININE 0.8 mg/dL (0.6-1.3); MAGNESIUM 1.5 mg/dL (1.8-2.4); POTASSIUM 3.8 mmol/L (3.5-5.1); TOTAL PROTEIN, SERUM 6.4 g/dL (6.4-8.2)
--- NOTE | 2018-03-22 07:40 | NUR ---
Patient noted resting in bed with eyes closed, no complaints of pain at this time, no signs of distress, call light in reach, bed locked and in lowest position, all needs met at this time
[2018-03-22 07:44] LABS: THYROID STIMULATING HORMONE 1.578 mIU/mL (0.358-3.740)
[2018-03-22] MEDS ORDERED: MAGNESIUM SULFATE/D5W 100 ML IV SCH (08:00)
[2018-03-22] MEDS: FERROUS SULFATE 325 MG TABEC PO SCH ×2 (08:10→17:07)
[2018-03-22] MEDS: ASPIRIN EC 81 MG TABLET.DR PO SCH (08:10)
[2018-03-22] MEDS: VALSARTAN 160 MG TABLET PO SCH (08:10)
[2018-03-22] MEDS: CARVEDILOL 3.125 MG TABLET PO SCH ×2 (08:11→17:07)
[2018-03-22] MEDS: MAGNESIUM OXIDE 250 MG TABLET PO SCH ×2 (08:12→17:06)
[2018-03-22] MEDS: INSULIN REGULAR, HUMAN 300 UNIT/3 ML VIAL SQ PRN ×4 (08:21→20:43)
[2018-03-22] MEDS ORDERED: Medication Not On Formulary EA (Valsartan (Diovan) 320 MG) PO SCH (09:00)
[2018-03-22] MEDS ORDERED: CARVEDILOL PHOSPHATE 10 MG PO SCH (09:00)
[2018-03-22] MEDS ORDERED: FERROUS SULFATE 325 MG TABEC PO SCH (09:00)
[2018-03-22 09:05] VITALS: BP 142/73
[2018-03-22] MEDS ORDERED: MAGNESIUM OXIDE 250 MG TABLET PO ONE ×2 (09:15→21:00)
[2018-03-22 13:11] LABS: BAND % (MANUAL) 2 % (0-10); BASOPHILS % (MANUAL) 1 % (0-2); EOSINOPHILS % (MANUAL) 2 % (0-8); LYMPHOCYTES % (MANUAL) 16 % (20-40); METAMYELOCYTES % 1 % (0-1); MONOCYTES % (MANUAL) 9 % (2-10); MYELOCYTES % 1 % (0-0); NEUTROPHILS % (MANUAL) 68 % (42-75)
[2018-03-22 15:50] VITALS: BP 141/65
[2018-03-22 19:30] VITALS: BP 111/52
--- NOTE | 2018-03-22 19:50 | NUR ---
Patient received in bed. AAO x3. Able to make needs known. No sign of acute distress or SOB was noted. On room air. No Complain of pain at this time. Patient assessed. Safety measures maintained. Leggett catheter in place, draining well. Bed in low position, brake and alarm on, side rails up x2. Call light and personal belongings within reach. Will continue to monitor.
[2018-03-22] MEDS: ATORVASTATIN 20 MG TABLET PO SCH (20:36)
[2018-03-22] MEDS: DOCUSATE SODIUM 100 MG CAPSULE PO SCH (20:36)
[2018-03-22] MEDS: ENOXAPARIN SODIUM 40 MG/0.4 ML DISP.SYRIN SQ SCH (20:37)
--- NOTE | 2018-03-22 21:00 | NUR ---
Patient's wound on the right leg was observed by Dr. Hood. According to the order, wound cleansed with NS, pat dry, applied Mepilex and wrapped with Kerlix. The wound looks dry with no discharge. Continue to monitor.
--- NOTE | 2018-03-22 21:45 | NUR ---
Patient refused Lovenox injection. Risks and benefits explained. Still refused. Continue to monitor.
[2018-03-23 04:30] VITALS: BP 121/60
--- NOTE | 2018-03-23 05:18 | NUR ---
End of the shift note Patient was stable throughout the shift and had a good sleep last night. No sign of acute distress or SOB noted. No Complain of pain. Medications given as ordered. Leggett catheter in place, draining well with yellow urine. Accucheck done, BS 249 @2100, covered with 6 units insulin based on sliding scale. dressing changed. Safety measures maintained. All needs anticipated promptly. Fall precaution maintained. Bed in low position, brake and alarm on, side rails up x2. Call light and personal belongings within reach. Continue to monitor and will endorse to the day shift nurse accordingly.
[2018-03-23] MEDS: BLOOD SUGAR DIAGNOSTIC 1 EACH STRIP VI SCH ×4 (06:37→21:27)
[2018-03-23] MEDS: PANTOPRAZOLE SODIUM 40 MG TABLET.DR PO SCH (06:37)
[2018-03-23] MEDS: LEVOTHYROXINE SODIUM 50 MCG TABLET PO SCH (06:37)
--- NOTE | 2018-03-23 07:22 | NUR ---
Patient noted sitting up in bed smiling, states that she does have pain but does not want pain medication, no signs of distress noted, call light placed in reach, bed locked and in lowest position, all needs met at this time
[2018-03-23 08:00] VITALS: BP 116/58
[2018-03-23] MEDS: ASPIRIN EC 81 MG TABLET.DR PO SCH (08:37)
[2018-03-23] MEDS: VALSARTAN 160 MG TABLET PO SCH (08:37)
[2018-03-23] MEDS: FERROUS SULFATE 325 MG TABEC PO SCH ×2 (08:37→17:09)
[2018-03-23] MEDS: MAGNESIUM OXIDE 250 MG TABLET PO SCH ×2 (08:37→17:09)
[2018-03-23] MEDS: CARVEDILOL 3.125 MG TABLET PO SCH ×2 (08:38→17:09)
[2018-03-23] MEDS: INSULIN REGULAR, HUMAN 300 UNIT/3 ML VIAL SQ PRN ×4 (08:42→21:04)
[2018-03-23] MEDS ORDERED: MAGNESIUM OXIDE 400 MG TABLET PO ONE (09:15)
[2018-03-23] MEDS: ACETAMINOPHEN 325 MG TABLET PO PRN (10:59)
[2018-03-23] MEDS: METHYL SALICYLATE/MENTHOL CREAM 28 GM TUBE TOP PRN ×2 (10:59→20:54)
--- NOTE | 2018-03-23 11:28 | NUR ---
INTERDISCIPLINARY TEAM CONFERENCE
[2018-03-23 17:20] VITALS: BP 99/53
[2018-03-23 18:06] LABS: *BILIRUBIN,URIN NEGATIVE (NEGATIVE); *BLOOD, URINE NEGATIVE (NEGATIVE); *KETONES,URINE NEGATIVE (NEGATIVE); *UROBILINOGEN,URINE 0.2 E.U./dl (NORMAL); NITRITE, URINE NEGATIVE (NEGATIVE); PH,URINE >=9.0 (5.0-8.0); UGLUCOSE 1+ (NEGATIVE)
--- NOTE | 2018-03-23 18:17 | NUR ---
Urine specimen collected via chinchilla catheter and sent to lab, took all medications this shift, no change in level of consciousness, dressing on right wynne changed this shift
[2018-03-23 19:00] LABS: *CLARITY,URINE TURBID (CLEAR); *COLOR,URINE LIGHT YELLOW (YELLOW)
[2018-03-23 19:02] LABS: LEUKOCYTE ESTERASE ,URINE TRACE (NEGATIVE)
[2018-03-23 19:06] LABS: BACTERIA,URINE MODERATE /HPF (NONE SEEN); MUCUS,URINE MODERATE /LPF (0-FEW); TRIPLE PHOSPHATE CRYSTAL,UR MANY /HPF (NONE SEEN); URINE AMORPHOUS PHOSPHATES MANY /HPF; WBC,URINE 0-3 /HPF (0-3)
[2018-03-23] MEDS: ATORVASTATIN 20 MG TABLET PO SCH (20:54)
[2018-03-23] MEDS: ENOXAPARIN SODIUM 40 MG/0.4 ML DISP.SYRIN SQ SCH (20:54)
[2018-03-23] MEDS: DOCUSATE SODIUM 100 MG CAPSULE PO SCH (20:54)
[2018-03-23 21:19] VITALS: BP 112/53
--- NOTE | 2018-03-23 21:40 | NUR ---
Patient refused Lovenox injection. Risks and benefits explained. Still refused. Continue to monitor.
[2018-03-24 04:50] VITALS: BP 133/66
--- NOTE | 2018-03-24 05:43 | NUR ---
End of the shift note Patient was stable throughout the shift and had a good sleep last night. No sign of acute distress or SOB noted. No Complain of pain. Medications given as ordered. Methyl salicylate cream applied on the right ribs. Leggett catheter in place, draining well with yellow urine. Accucheck done, BS 200 @2100, covered with 3 units insulin based on sliding scale. Safety measures maintained. All needs anticipated promptly. Fall precaution maintained. Bed in low position, brake and alarm on, side rails up x2. Call light and personal belongings within reach. Continue to monitor and will endorse to the day shift nurse accordingly.
[2018-03-24] MEDS: PANTOPRAZOLE SODIUM 40 MG TABLET.DR PO SCH (06:20)
[2018-03-24] MEDS: LEVOTHYROXINE SODIUM 50 MCG TABLET PO SCH (06:20)
[2018-03-24] MEDS: BLOOD SUGAR DIAGNOSTIC 1 EACH STRIP VI SCH ×4 (06:33→20:57)
[2018-03-24 07:44] LABS: BASOPHILS # (AUTO) 0.1 K/uL (0.0-8.0); BASOPHILS % (AUTO) 0.9 % (0.0-2.0); EOSINOPHILS # (AUTO) 0.2 K/uL (0.0-0.7); HEMATOCRIT 25.6 % (31.2-41.9); HEMOGLOBIN 8.9 g/dL (10.9-14.3); LYMPHOCYTES # (AUTO) 1.9 K/uL (20.0-40.0); LYMPHOCYTES % (AUTO) 23.5 % (20.5-51.5); MEAN CORPUSCULAR HEMOGLOBIN 30.5 uug (24.7-32.8); MEAN CORPUSCULAR HGB CONC 35 g/dL (32.3-35.6); MEAN CORPUSCULAR VOLUME 88.2 fL (75.5-95.3); MONOCYTES # (AUTO) 0.8 K/uL (2.0-10.0); MONOCYTES % (AUTO) 10.3 % (0.0-11.0); NEUTROPHILS % (AUTO) 62.3 % (38.5-71.5); PLATELET COUNT (AUTO) 183 K/uL (179-408); RED BLOOD CELL COUNT(AUTO) 2.91 MIL/uL (3.63-4.92)
[2018-03-24 08:00] VITALS: BP 149/70
[2018-03-24] MEDS: CARVEDILOL 3.125 MG TABLET PO SCH ×2 (08:31→18:00)
[2018-03-24] MEDS: MAGNESIUM OXIDE 250 MG TABLET PO SCH ×2 (08:31→16:23)
[2018-03-24] MEDS: ASPIRIN EC 81 MG TABLET.DR PO SCH (08:32)
[2018-03-24] MEDS: VALSARTAN 160 MG TABLET PO SCH (08:32)
[2018-03-24] MEDS: FERROUS SULFATE 325 MG TABEC PO SCH ×2 (08:32→16:23)
[2018-03-24] MEDS: INSULIN REGULAR, HUMAN 300 UNIT/3 ML VIAL SQ PRN ×4 (08:40→20:58)
--- NOTE | 2018-03-24 13:00 | NUR ---
SBAR report received this morning, Pt assessed, AAOx3. Pt able to make needs known. Pt reports relief from right lower rib pain with the use of [place] cream. Pt compliant with routinely scheduled medication administration. Leggett catheter in place, care provided, draining yellow urine with sediment present. MD made aware. Bed in locked and lowest position with side rails up x2. All comfort and safety need met promptly throughout this shift. Wound care provided as ordered. Call light and personal items placed within reach. Will continue to monitor and endorse to oncoming night nurse.
[2018-03-24 16:00] VITALS: BP 124/67
[2018-03-24 20:38] VITALS: BP 100/59
[2018-03-24] MEDS: DOCUSATE SODIUM 100 MG CAPSULE PO SCH (20:53)
[2018-03-24] MEDS: ATORVASTATIN 20 MG TABLET PO SCH (20:53)
[2018-03-24] MEDS: ENOXAPARIN SODIUM 40 MG/0.4 ML DISP.SYRIN SQ SCH (20:54)
--- NOTE | 2018-03-24 21:05 | NUR ---
Patient refused Lovenox injection. Risks and benefits explained. Still refused. Continue to monitor.
--- NOTE | 2018-03-24 22:35 | NUR ---
SBAR received from AM nurse. Patient assessed, alert and oriented x3. No complaint of pain or SOB upon assessment. All due medications given-tolerated well. Refused Lovenox injection. No signs of hypo-hyperglycemia noted. 2100 BS was 266. 6 units of Humulin coverage given. Leggett catheter draining yellow urine. Sediment present. All comfort and safety need met promptly. Bed remained in locked and lowest position with side rails up x2. Call light and frequently used items within reach. Will continue to monitor.
--- NOTE | 2018-03-25 01:32 | NUR ---
Patient refused to take pictures from wounds.
--- NOTE | 2018-03-25 05:39 | NUR ---
End of the shift note Patient was stable throughout the shift and had a good sleep last night. No sign of acute distress or SOB noted. No Complain of pain. Medications given as ordered. Methyl salicylate cream applied on the right ribs. Leggett catheter in place, draining well with yellow urine. Accucheck done, BS 266 @2100, covered with 6 units insulin based on sliding scale. She refused to take pictures from wounds. Safety measures maintained. All needs anticipated promptly. Fall precaution maintained. Bed in low position, brake and alarm on, side rails up x2. Call light and personal belongings within reach. Continue to monitor and will endorse to the day shift nurse accordingly.
[2018-03-25 05:40] VITALS: BP 132/63
[2018-03-25] MEDS: PANTOPRAZOLE SODIUM 40 MG TABLET.DR PO SCH (06:14)
[2018-03-25] MEDS: LEVOTHYROXINE SODIUM 50 MCG TABLET PO SCH (06:15)
[2018-03-25] MEDS: BLOOD SUGAR DIAGNOSTIC 1 EACH STRIP VI SCH ×4 (06:32→20:49)
[2018-03-25 07:17] LABS: BASOPHILS # (AUTO) 0.1 K/uL (0.0-8.0); BASOPHILS % (AUTO) 0.9 % (0.0-2.0); EOSINOPHILS # (AUTO) 0.3 K/uL (0.0-0.7); EOSINOPHILS % (AUTO) 2.7 % (0.0-7.0); HEMOGLOBIN 9.8 g/dL (10.9-14.3); LYMPHOCYTES # (AUTO) 1.9 K/uL (20.0-40.0); LYMPHOCYTES % (AUTO) 20.1 % (20.5-51.5); MEAN CORPUSCULAR HEMOGLOBIN 29.8 uug (24.7-32.8); MEAN CORPUSCULAR HGB CONC 34 g/dL (32.3-35.6); MEAN CORPUSCULAR VOLUME 87.8 fL (75.5-95.3); MONOCYTES % (AUTO) 10.2 % (0.0-11.0); NEUTROPHILS # (AUTO) 6.2 K/uL (1.8-8.9); NEUTROPHILS % (AUTO) 66.1 % (38.5-71.5); PLATELET COUNT (AUTO) 220 K/uL (179-408); WHITE BLOOD COUNT (AUTO) 9.4 K/uL (3.8-11.8)
[2018-03-25 07:48] LABS: CREATININE 0.8 mg/dL (0.6-1.3); MAGNESIUM 1.8 mg/dL (1.8-2.4); POTASSIUM 4.3 mmol/L (3.5-5.1)
[2018-03-25] MEDS: INSULIN REGULAR, HUMAN 300 UNIT/3 ML VIAL SQ PRN ×4 (07:58→20:57)
[2018-03-25] MEDS: VALSARTAN 160 MG TABLET PO SCH (07:59)
[2018-03-25] MEDS: FERROUS SULFATE 325 MG TABEC PO SCH ×2 (08:00→16:50)
[2018-03-25] MEDS: ASPIRIN EC 81 MG TABLET.DR PO SCH (08:00)
[2018-03-25] MEDS: MAGNESIUM OXIDE 250 MG TABLET PO SCH ×2 (08:01→16:50)
[2018-03-25] MEDS: CARVEDILOL 3.125 MG TABLET PO SCH ×2 (08:06→16:51)
[2018-03-25 08:31] VITALS: BP 131/73
[2018-03-25 09:09] LABS: LYMPHOCYTES % (MANUAL) 28 % (20-40); MONOCYTES % (MANUAL) 6 % (2-10); NEUTROPHILS % (MANUAL) 66 % (42-75)
[2018-03-25 17:57] VITALS: BP 97/54
[2018-03-25 19:51] VITALS: BP 115/61
[2018-03-25] MEDS: ATORVASTATIN 20 MG TABLET PO SCH (20:48)
[2018-03-25] MEDS: DOCUSATE SODIUM 100 MG CAPSULE PO SCH (20:48)
[2018-03-25] MEDS: ENOXAPARIN SODIUM 40 MG/0.4 ML DISP.SYRIN SQ SCH (20:52)
--- NOTE | 2018-03-25 22:44 | NUR ---
Received pt in bed, AAO x 3 watching television. No acute distress noted. Verbally responsive and able to communicate needs. Denies pain or discomfort at this time, c/o pain upon movement. All due medications given as ordered by MD, tolerated well. Refusing Lovenox 40mg SQ, offered x 3 explained risks and benefits but continue to refuse. BS noted to be 290, coverage provided per sliding scale as ordered by MD. Leggett cath noted draining well into bag, cloudy yellow urine. Refusing to be repositioned, stating that she does not need it. Air mattress placed. All safety measures and fall precautions maintained. Call light and all personal belongings within reach. Will continue to monitor.
[2018-03-26] MEDS: PANTOPRAZOLE SODIUM 40 MG TABLET.DR PO SCH (06:27)
[2018-03-26] MEDS: LEVOTHYROXINE SODIUM 50 MCG TABLET PO SCH (06:27)
[2018-03-26] MEDS: BLOOD SUGAR DIAGNOSTIC 1 EACH STRIP VI SCH ×4 (06:30→21:31)
[2018-03-26 07:02] VITALS: BP 121/79
[2018-03-26 07:30] VITALS: BP 134/73
[2018-03-26] MEDS: ASPIRIN EC 81 MG TABLET.DR PO SCH (08:40)
[2018-03-26] MEDS: MAGNESIUM OXIDE 250 MG TABLET PO SCH ×2 (08:41→16:50)
[2018-03-26] MEDS: FERROUS SULFATE 325 MG TABEC PO SCH ×2 (08:41→16:50)
[2018-03-26] MEDS: CARVEDILOL 3.125 MG TABLET PO SCH ×2 (08:42→18:00)
[2018-03-26] MEDS: INSULIN REGULAR, HUMAN 300 UNIT/3 ML VIAL SQ PRN ×4 (08:49→21:29)
[2018-03-26] MEDS: VALSARTAN 160 MG TABLET PO SCH (09:00)
[2018-03-26 15:22] VITALS: BP 90/46
--- NOTE | 2018-03-26 16:00 | NUR ---
[employer] Note: Compound Filler attempted to meet with patient at bedside to provide education about Compound Filler role and assess for any psychosocial needs. Patient was asleep and unable to be awoken at this time. SW will attempt to speak with the patient again if time permits. SW will continue to be available to the patient throughout her stay in ARU.
--- NOTE | 2018-03-26 19:02 | NUR ---
SBAR report received this morning from cook night nurse. Pt assessed, AAOx3. Pt able to make needs known. Pt denies pain and related medication even with therapy. Pt compliant with routine medication administration, only refusing Valsartan this morning. Leggett catheter care provided, in place, draining yellow urine with sediments noted. Pt seen by , new orders received. Wound and skin care provided as ordered. All comfort and safety needs promptly met throughout this shift. Bed in locked and lowest position, with alarm on and side rails up x2. Air mattress applied. Call light and personal items placed within reach. Will continue to monitor and endorse to oncoming nurse.
--- NOTE | 2018-03-26 19:15 | NUR ---
Received patient in bed. Alert and verbally responsive. Able to make needs known. Denies any pain and discomfort. No acute distress. No SOB. Air Mattress in place. Leggett catheter is patent and intact. Draining pale yellow urine. Kept clean and dry. All needs attended to promptly. Call light within reach. Will continue to monitor.
[2018-03-26 20:10] VITALS: BP 89/50
[2018-03-26] MEDS: DOCUSATE SODIUM 100 MG CAPSULE PO SCH (21:00)
[2018-03-26] MEDS: ENOXAPARIN SODIUM 40 MG/0.4 ML DISP.SYRIN SQ SCH (21:00)
[2018-03-26] MEDS: ATORVASTATIN 20 MG TABLET PO SCH (21:27)
[2018-03-27 05:44] VITALS: BP 122/54
[2018-03-27] MEDS: PANTOPRAZOLE SODIUM 40 MG TABLET.DR PO SCH (06:09)
[2018-03-27] MEDS: LEVOTHYROXINE SODIUM 50 MCG TABLET PO SCH (06:09)
[2018-03-27] MEDS: INSULIN REGULAR, HUMAN 300 UNIT/3 ML VIAL SQ PRN ×4 (06:33→21:03)
[2018-03-27] MEDS: BLOOD SUGAR DIAGNOSTIC 1 EACH STRIP VI SCH ×4 (06:33→21:06)
[2018-03-27 07:10] VITALS: BP 121/82
[2018-03-27 08:12] LABS: CREATININE 0.9 mg/dL (0.6-1.3); POTASSIUM 3.9 mmol/L (3.5-5.1)
[2018-03-27] MEDS: CARVEDILOL 3.125 MG TABLET PO SCH ×2 (08:35→17:30)
[2018-03-27] MEDS: VALSARTAN 160 MG TABLET PO SCH (08:36)
[2018-03-27] MEDS: ASPIRIN EC 81 MG TABLET.DR PO SCH (08:36)
[2018-03-27] MEDS: MAGNESIUM OXIDE 250 MG TABLET PO SCH ×2 (08:37→17:29)
[2018-03-27] MEDS: FERROUS SULFATE 325 MG TABEC PO SCH ×2 (08:37→17:29)
[2018-03-27] MEDS: ASCORBIC ACID 500 MG TABLET PO SCH (08:38)
[2018-03-27] MEDS: MULTIVIT, IRON, MIN NO. 8, FA TABLET PO SCH (08:38)
--- NOTE | 2018-03-27 11:46 | NUR ---
WOUND CARE CONSULT PATIENT SEEN AND SACRAL/BUTTOCKS EVALUATED. PATIENT PRESENTS WITH SKIN TEAR TO THE SACRAL REGION THAT EXTENDS TO THE RIGHT BUTTOCK AREA. TMT RECOMMENDATIONS MADE AND DISCUSSED WITH MD. PATIENT ABLE TO ASSIST WITH TURNING, HOWEVER DOES NEED PROMPTING AND HEEL FLOATING. ALL DISCUSSED WITH NURSING AT THE BEDSIDE. 1ST STEP LOW AIRLOSS MATTRESS IN USE FOR SKIN MANAGEMENT PATIENT RARELY MOVES IN BED DUE TO PAIN WITH MOVEMENT. Addendum: 03/27/18 at 1150 by RAMOS BURT [id number] Amended: Links added. Addendum: 03/27/18 at 1155 by RAMOS FUU WOUND CARE WILL DEFER THE LOWER LEG WOUND TO DPDeidre AUGUSTE HE IS CURRENTLY FOLLOWING THIS PATIENT.
--- NOTE | 2018-03-27 15:52 | NUR ---
INTERDISCIPLINARY TEAM CONFERENCE
[2018-03-27 16:05] VITALS: BP 106/49
[2018-03-27] MEDS: ENOXAPARIN SODIUM 40 MG/0.4 ML DISP.SYRIN SQ SCH (21:00)
[2018-03-27] MEDS: DOCUSATE SODIUM 100 MG CAPSULE PO SCH (21:02)
[2018-03-27] MEDS: ATORVASTATIN 20 MG TABLET PO SCH (21:02)
[2018-03-27 21:22] VITALS: BP 97/45
--- NOTE | 2018-03-27 21:30 | NUR ---
Patient has been refusing Lovenox. Educated about the risks and benefits of getting the medication but still strongly disagree. Will continue to monitor. Will notify MD.
[2018-03-27] MEDS: IV NS 1000 ML 1,000 ML IV PRN (22:25)
[2018-03-28 04:30] VITALS: BP 144/68
[2018-03-28] MEDS: LEVOTHYROXINE SODIUM 50 MCG TABLET PO SCH (06:18)
[2018-03-28] MEDS: PANTOPRAZOLE SODIUM 40 MG TABLET.DR PO SCH (06:18)
[2018-03-28] MEDS: BLOOD SUGAR DIAGNOSTIC 1 EACH STRIP VI SCH ×4 (06:35→21:43)
[2018-03-28] MEDS: INSULIN REGULAR, HUMAN 300 UNIT/3 ML VIAL SQ PRN ×4 (07:59→21:48)
[2018-03-28] MEDS: MAGNESIUM OXIDE 250 MG TABLET PO SCH ×2 (08:01→17:11)
[2018-03-28] MEDS: FERROUS SULFATE 325 MG TABEC PO SCH ×2 (08:02→17:11)
[2018-03-28] MEDS: ASPIRIN EC 81 MG TABLET.DR PO SCH (08:02)
[2018-03-28] MEDS: CARVEDILOL 3.125 MG TABLET PO SCH ×2 (08:02→17:13)
[2018-03-28] MEDS: ASCORBIC ACID 500 MG TABLET PO SCH (08:02)
[2018-03-28] MEDS: MULTIVIT, IRON, MIN NO. 8, FA TABLET PO SCH (08:02)
[2018-03-28] MEDS: VALSARTAN 160 MG TABLET PO SCH (08:02)
--- NOTE | 2018-03-28 08:10 | NUR ---
Received patient awake, alert x3-4. Not in any form of distress. Denies any pain. Am care done, conrado-care and wound care done as ordered.
[2018-03-28 08:53] VITALS: BP 144/73
[2018-03-28] MEDS: IV NS 1000 ML 1,000 ML IV PRN ×2 (11:10→22:19)
--- NOTE | 2018-03-28 13:49 | NUR ---
Up with occupational therapy, offered pain medications but patient refused. Said pain is tolerable over lower extremities
[2018-03-28 16:00] VITALS: BP 123/76
--- NOTE | 2018-03-28 19:05 | NUR ---
Sleeping comfortably during initial rounds. HOB elevated. NO s/s of respiratory distress. IVF infusing well on left hand. No s/s of infiltration. Safety measure and fall precaution maintained. F/c intact and patent draining QS clear yellow urine. No s/s of hypo/hyperglycemia. Continue care as planned.
[2018-03-28 19:37] VITALS: BP 119/60
[2018-03-28] MEDS: ENOXAPARIN SODIUM 40 MG/0.4 ML DISP.SYRIN SQ SCH (21:00)
--- NOTE | 2018-03-28 21:15 | NUR ---
Patient refused Lovenox at this time. Explained the risk and benefits in a matter she can understand better but to no avail. Will endorse to oncoming shift in AM.
[2018-03-28] MEDS: ATORVASTATIN 20 MG TABLET PO SCH (21:40)
[2018-03-28] MEDS: DOCUSATE SODIUM 100 MG CAPSULE PO SCH (21:40)
[2018-03-29 04:25] VITALS: BP 154/73
[2018-03-29] MEDS: LEVOTHYROXINE SODIUM 50 MCG TABLET PO SCH (06:37)
[2018-03-29] MEDS: PANTOPRAZOLE SODIUM 40 MG TABLET.DR PO SCH (06:37)
[2018-03-29] MEDS: BLOOD SUGAR DIAGNOSTIC 1 EACH STRIP VI SCH ×4 (06:39→21:13)
--- NOTE | 2018-03-29 07:01 | NUR ---
Shift End Report: VSS. Slept well. No complaint presented all night. No s/s of hypo/hyperglycemia. No s/s of hypo/hypertension. No fall/injury. No s/s of IV site infiltration on LH. IVF infusing well. No significant event reported all night. Continue current rehab plan of care.
[2018-03-29 08:00] VITALS: BP 163/90
[2018-03-29] MEDS: VALSARTAN 160 MG TABLET PO SCH (08:16)
[2018-03-29] MEDS: ASCORBIC ACID 500 MG TABLET PO SCH (08:16)
[2018-03-29] MEDS: FERROUS SULFATE 325 MG TABEC PO SCH ×2 (08:16→17:17)
[2018-03-29] MEDS: MULTIVIT, IRON, MIN NO. 8, FA TABLET PO SCH (08:16)
[2018-03-29] MEDS: CARVEDILOL 3.125 MG TABLET PO SCH ×2 (08:17→17:19)
[2018-03-29] MEDS: MAGNESIUM OXIDE 250 MG TABLET PO SCH ×2 (08:17→17:17)
[2018-03-29 08:23] LABS: BASOPHILS # (AUTO) 0.1 K/uL (0.0-8.0); BASOPHILS % (AUTO) 0.6 % (0.0-2.0); EOSINOPHILS # (AUTO) 0.3 K/uL (0.0-0.7); EOSINOPHILS % (AUTO) 2.6 % (0.0-7.0); HEMATOCRIT 27.1 % (31.2-41.9); HEMOGLOBIN 9.1 g/dL (10.9-14.3); LYMPHOCYTES # (AUTO) 2.2 K/uL (20.0-40.0); LYMPHOCYTES % (AUTO) 18.9 % (20.5-51.5); MEAN CORPUSCULAR HEMOGLOBIN 29.4 uug (24.7-32.8); MEAN CORPUSCULAR HGB CONC 34 g/dL (32.3-35.6); MEAN CORPUSCULAR VOLUME 87.5 fL (75.5-95.3); MONOCYTES # (AUTO) 0.6 K/uL (2.0-10.0); MONOCYTES % (AUTO) 5.4 % (0.0-11.0); NEUTROPHILS # (AUTO) 8.3 K/uL (1.8-8.9); NEUTROPHILS % (AUTO) 72.5 % (38.5-71.5); PLATELET COUNT (AUTO) 249 K/uL (179-408); RED BLOOD CELL COUNT(AUTO) 3.09 MIL/uL (3.63-4.92); WHITE BLOOD COUNT (AUTO) 11.4 K/uL (3.8-11.8)
[2018-03-29] MEDS: INSULIN REGULAR, HUMAN 300 UNIT/3 ML VIAL SQ PRN ×4 (08:23→21:18)
[2018-03-29 08:31] LABS: CREATININE 0.7 mg/dL (0.6-1.3); POTASSIUM 4.1 mmol/L (3.5-5.1)
[2018-03-29] MEDS: ASPIRIN EC 81 MG TABLET.DR PO SCH (08:45)
[2018-03-29 09:42] LABS: EOSINOPHILS % (MANUAL) 5 % (0-8); LYMPHOCYTES % (MANUAL) 20 % (20-40); METAMYELOCYTES % 2 % (0-1); MONOCYTES % (MANUAL) 6 % (2-10); MYELOCYTES % 2 % (0-0); NEUTROPHILS % (MANUAL) 65 % (42-75)
[2018-03-29] MEDS ORDERED: DIPHENOXYLATE HCL/ATROP SULF TABLET PO PRN (12:15)
[2018-03-29 16:00] VITALS: BP 139/75
--- NOTE | 2018-03-29 19:25 | NUR ---
Awake, watching TV at this time, very pleasant and happy mood. Denies any pain/discomforts. IVF infusing well on left hand, no s/s of infiltration noted. F/C intact and patent draining clear yellow output. Safety measure and fall precaution maintained. Continue care as planned.
[2018-03-29 20:29] VITALS: BP 118/58
[2018-03-29] MEDS: ENOXAPARIN SODIUM 40 MG/0.4 ML DISP.SYRIN SQ SCH (21:00)
[2018-03-29] MEDS: ATORVASTATIN 20 MG TABLET PO SCH (21:10)
[2018-03-29] MEDS: DOCUSATE SODIUM 100 MG CAPSULE PO SCH (21:11)
--- NOTE | 2018-03-29 21:19 | NUR ---
Patient again refused her Lovenox.
[2018-03-30] MEDS: IV NS 1000 ML 1,000 ML IV PRN (00:34)
[2018-03-30 05:02] VITALS: BP 143/79
--- NOTE | 2018-03-30 05:23 | NUR ---
Shift End Report: VSS. Slept good. No complaint presente
[2018-03-30] MEDS: LEVOTHYROXINE SODIUM 50 MCG TABLET PO SCH (06:20)
[2018-03-30] MEDS: PANTOPRAZOLE SODIUM 40 MG TABLET.DR PO SCH (06:20)
[2018-03-30] MEDS: BLOOD SUGAR DIAGNOSTIC 1 EACH STRIP VI SCH ×4 (06:22→20:38)
--- NOTE | 2018-03-30 07:41 | NUR ---
Patient noted sitting up in bed, no complaints of pain at this time, no signs of distress noted, call light noted in reach, bed locked and in lowest position, all needs met at this time.
[2018-03-30 08:00] VITALS: BP 146/84
[2018-03-30] MEDS: FERROUS SULFATE 325 MG TABEC PO SCH ×2 (08:14→17:19)
[2018-03-30] MEDS: ASPIRIN EC 81 MG TABLET.DR PO SCH (08:14)
[2018-03-30] MEDS: ASCORBIC ACID 500 MG TABLET PO SCH (08:14)
[2018-03-30] MEDS: MULTIVIT, IRON, MIN NO. 8, FA TABLET PO SCH (08:14)
[2018-03-30] MEDS: CARVEDILOL 3.125 MG TABLET PO SCH ×2 (08:15→17:19)
[2018-03-30] MEDS: MAGNESIUM OXIDE 250 MG TABLET PO SCH ×2 (08:15→17:19)
[2018-03-30] MEDS: VALSARTAN 160 MG TABLET PO SCH (08:15)
[2018-03-30] MEDS: INSULIN REGULAR, HUMAN 300 UNIT/3 ML VIAL SQ PRN ×4 (08:23→20:40)
[2018-03-30 16:26] VITALS: BP 141/79
--- NOTE | 2018-03-30 18:03 | NUR ---
Patient requested to stop IV fluids at this time, IV hep locked at this time
--- NOTE | 2018-03-30 20:04 | NUR ---
SBAR report received from AM shift nurse. Pt assessed, AAO x3-4. Pt able to make needs known. PM care done. No pain reported at this time. Pt compliant with routine medication administration. IV noted to be note infusing. IV site patent. All safety and comfort needs promptly.Bed in locked and lowest position,with call light and personal belonging within reach. Will continue to monitor.
[2018-03-30] MEDS: ENOXAPARIN SODIUM 40 MG/0.4 ML DISP.SYRIN SQ SCH (20:37)
[2018-03-30] MEDS: DOCUSATE SODIUM 100 MG CAPSULE PO SCH (20:37)
[2018-03-30] MEDS: ATORVASTATIN 20 MG TABLET PO SCH (20:37)
[2018-03-30 20:50] VITALS: BP 117/65
[2018-03-31 04:59] VITALS: BP 147/75
[2018-03-31] MEDS: PANTOPRAZOLE SODIUM 40 MG TABLET.DR PO SCH (06:08)
[2018-03-31] MEDS: LEVOTHYROXINE SODIUM 50 MCG TABLET PO SCH (06:08)
--- NOTE | 2018-03-31 06:23 | NUR ---
End of Shift Report: No significant change during shift. No pain, or distress noted during this shift. Patient refused PM Lovenox. All needs attended to and met. All due medications given-tolerated well. No s/s of hypo-hyperglycemia at this time. No signs fo IV infiltration at this time. Call light and frequently used items within reach. Will endorse to oncoming shift accordingly.
[2018-03-31] MEDS: BLOOD SUGAR DIAGNOSTIC 1 EACH STRIP VI SCH ×4 (06:35→20:36)
[2018-03-31 07:31] LABS: BASOPHILS # (AUTO) 0.1 K/uL (0.0-8.0); BASOPHILS % (AUTO) 0.7 % (0.0-2.0); EOSINOPHILS # (AUTO) 0.3 K/uL (0.0-0.7); EOSINOPHILS % (AUTO) 2.8 % (0.0-7.0); HEMATOCRIT 27.2 % (31.2-41.9); HEMOGLOBIN 9.2 g/dL (10.9-14.3); LYMPHOCYTES # (AUTO) 2.4 K/uL (20.0-40.0); LYMPHOCYTES % (AUTO) 19.5 % (20.5-51.5); MEAN CORPUSCULAR HEMOGLOBIN 29.5 uug (24.7-32.8); MEAN CORPUSCULAR HGB CONC 34 g/dL (32.3-35.6); MEAN CORPUSCULAR VOLUME 87.2 fL (75.5-95.3); MONOCYTES # (AUTO) 0.7 K/uL (2.0-10.0); MONOCYTES % (AUTO) 5.9 % (0.0-11.0); NEUTROPHILS # (AUTO) 8.9 K/uL (1.8-8.9); NEUTROPHILS % (AUTO) 71.1 % (38.5-71.5); PLATELET COUNT (AUTO) 282 K/uL (179-408); RED BLOOD CELL COUNT(AUTO) 3.12 MIL/uL (3.63-4.92); WHITE BLOOD COUNT (AUTO) 12.4 K/uL (3.8-11.8)
[2018-03-31 07:42] LABS: CREATININE 0.7 mg/dL (0.6-1.3)
[2018-03-31 08:00] VITALS: BP 153/83
--- NOTE | 2018-03-31 08:00 | NUR ---
Patient awake, alert, sitting on the wheelchair having breakfast, not in any form of acute distress. She denies any pain or discomfort at this time. Attended to her needs. Call light and frequently used items placed within reach. Leggett catheter in place and patent draining clear yellow urine. left forearm IV line in place and patent, not noted signs of infection.
[2018-03-31] MEDS: MULTIVIT, IRON, MIN NO. 8, FA TABLET PO SCH (09:17)
[2018-03-31] MEDS: VALSARTAN 160 MG TABLET PO SCH (09:17)
[2018-03-31] MEDS: ASCORBIC ACID 500 MG TABLET PO SCH (09:17)
[2018-03-31] MEDS: FERROUS SULFATE 325 MG TABEC PO SCH ×2 (09:17→16:49)
[2018-03-31] MEDS: ASPIRIN EC 81 MG TABLET.DR PO SCH (09:17)
[2018-03-31] MEDS: CARVEDILOL 3.125 MG TABLET PO SCH ×2 (09:18→17:00)
[2018-03-31] MEDS: INSULIN REGULAR, HUMAN 300 UNIT/3 ML VIAL SQ PRN ×4 (09:22→20:38)
[2018-03-31] MEDS: MAGNESIUM OXIDE 250 MG TABLET PO SCH ×2 (09:28→16:57)
--- NOTE | 2018-03-31 09:35 | NUR ---
Dr. Zapata in the unit, notified regarding patient's refusal of IV NS and per MD its OK and gave no new order. Also notified MD regarding night nurse' endorsement of patient refusal of lovenox injection but no new order.
[2018-03-31 16:00] VITALS: BP 100/54
[2018-03-31] MEDS: GLIMEPIRIDE 2 MG TABLET PO SCH (17:00)
--- NOTE | 2018-03-31 19:40 | NUR ---
Patient received in bed. AAO x3. Able to make needs known. No sign of acute distress or SOB was noted. On room air. No Complain of pain at this time. Patient assessed. IV line on the left hand, no sign of infiltration or inflammation. Safety measures maintained. Fall prevention observed. Leggett catheter in place, draining well. Bed in low position, brake and alarm on, side rails up x2. Call light and personal belongings within reach. Will continue to monitor.
[2018-03-31 20:20] VITALS: BP 111/51
[2018-03-31] MEDS: ENOXAPARIN SODIUM 40 MG/0.4 ML DISP.SYRIN SQ SCH (20:37)
[2018-03-31] MEDS: ATORVASTATIN 20 MG TABLET PO SCH (20:37)
[2018-03-31] MEDS: DOCUSATE SODIUM 100 MG CAPSULE PO SCH (20:37)
--- NOTE | 2018-03-31 21:20 | NUR ---
Patient refused Lovenox injection. Risks and benefits explained. Still refused. Continue to monitor.
--- NOTE | 2018-03-31 21:40 | NUR ---
Dressing on the right leg was changed. Cleansed with NS, pat dry, applied Xeroform, wrapped with Kerlix. Continue to monitor.
[2018-04-01 05:46] VITALS: BP 132/64
--- NOTE | 2018-04-01 06:17 | NUR ---
End of the shift note Patient was stable throughout the shift and had a good sleep last night. No sign of acute distress or SOB noted. No Complain of pain. Medications given as ordered, well tolerated. Accucheck done, BS 173 @2100, covered by 3 units insulin based on sliding scale. Dressing changed on the right leg and sacral area. Keep her clean and dry. IV line on the left hand flushed, no sign of inflammation or infiltration, but refused to be flushed. Leggett catheter in placed, draining well yellow urine. pictures taken, placed in the chart. Safety measures maintained. All needs anticipated promptly. Fall precaution maintained. Bed in low position, brake and alarm on, side rails up x2. Call light and personal belongings within reach. Continue to monitor and will endorse to the day shift nurse accordingly.
[2018-04-01] MEDS: BLOOD SUGAR DIAGNOSTIC 1 EACH STRIP VI SCH ×4 (06:43→20:50)
[2018-04-01] MEDS: LEVOTHYROXINE SODIUM 50 MCG TABLET PO SCH (06:43)
[2018-04-01] MEDS: PANTOPRAZOLE SODIUM 40 MG TABLET.DR PO SCH (06:43)
--- NOTE | 2018-04-01 08:00 | NUR ---
Patient awake, alert, not in any form of acute distress, no complain of any pain or discomfort. Patient sitting on the wheelchair having breakfast. Attended to her needs. Call light and frequently used items placed within reach.
[2018-04-01 08:21] VITALS: BP 155/69
[2018-04-01] MEDS: FERROUS SULFATE 325 MG TABEC PO SCH ×2 (08:45→17:22)
[2018-04-01] MEDS: VALSARTAN 160 MG TABLET PO SCH (08:45)
[2018-04-01] MEDS: GLIMEPIRIDE 4 MG TABLET PO SCH (08:45)
[2018-04-01] MEDS: ASCORBIC ACID 500 MG TABLET PO SCH (08:46)
[2018-04-01] MEDS: CARVEDILOL 3.125 MG TABLET PO SCH ×2 (08:46→17:23)
[2018-04-01] MEDS: MULTIVIT, IRON, MIN NO. 8, FA TABLET PO SCH (08:46)
[2018-04-01] MEDS: MAGNESIUM OXIDE 250 MG TABLET PO SCH ×2 (08:46→17:22)
[2018-04-01] MEDS: ASPIRIN EC 81 MG TABLET.DR PO SCH (08:46)
[2018-04-01] MEDS: INSULIN REGULAR, HUMAN 300 UNIT/3 ML VIAL SQ PRN ×4 (08:53→20:54)
[2018-04-01 16:56] VITALS: BP 129/69
[2018-04-01] MEDS: GLIMEPIRIDE 2 MG TABLET PO SCH (17:22)
[2018-04-01 20:01] VITALS: BP 117/58
[2018-04-01] MEDS: DOCUSATE SODIUM 100 MG CAPSULE PO SCH (20:47)
[2018-04-01] MEDS: ATORVASTATIN 20 MG TABLET PO SCH (20:47)
[2018-04-01] MEDS: ENOXAPARIN SODIUM 40 MG/0.4 ML DISP.SYRIN SQ SCH (20:47)
--- NOTE | 2018-04-01 21:30 | NUR ---
Patient refused Lovenox injection. Risks and benefits explained. Still refused. Continue to monitor.
--- NOTE | 2018-04-01 21:50 | NUR ---
Dressing on the right leg was changed. Wound still open with an small amount of bleeding. Cleansed with NS, pat dry, applied Xeroform, wrapped with Kerlix. Continue to monitor.
[2018-04-02 05:39] VITALS: BP 127/59
[2018-04-02] MEDS: PANTOPRAZOLE SODIUM 40 MG TABLET.DR PO SCH (06:15)
[2018-04-02] MEDS: LEVOTHYROXINE SODIUM 50 MCG TABLET PO SCH (06:15)
[2018-04-02] MEDS: BLOOD SUGAR DIAGNOSTIC 1 EACH STRIP VI SCH ×4 (06:35→21:03)
--- NOTE | 2018-04-02 06:44 | NUR ---
End of the shift note Patient was stable throughout the shift and had a good sleep last night. No sign of acute distress or SOB noted. No Complain of pain. Medications given as ordered, well tolerated. Accucheck done, BS 172 @2100, covered by 3 units insulin based on sliding scale, BS 181 @ 0630. Dressing changed on the right leg and sacral area. Keep her clean and dry. IV line on the left hand, no sign of inflammation or infiltration, but refused to be flushed. Leggett catheter in placed, draining well yellow urine. Safety measures maintained. All needs anticipated promptly. Fall precaution maintained. Bed in low position, brake and alarm on, side rails up x2. Call light and personal belongings within reach. Continue to monitor and will endorse to the day shift nurse accordingly.
[2018-04-02] MEDS: INSULIN REGULAR, HUMAN 300 UNIT/3 ML VIAL SQ PRN ×4 (08:23→21:03)
[2018-04-02] MEDS: ASPIRIN EC 81 MG TABLET.DR PO SCH (08:33)
[2018-04-02] MEDS: GLIMEPIRIDE 4 MG TABLET PO SCH (08:33)
[2018-04-02] MEDS: ASCORBIC ACID 500 MG TABLET PO SCH (08:33)
[2018-04-02] MEDS: MULTIVIT, IRON, MIN NO. 8, FA TABLET PO SCH (08:33)
[2018-04-02] MEDS: VALSARTAN 160 MG TABLET PO SCH (08:33)
[2018-04-02] MEDS: FERROUS SULFATE 325 MG TABEC PO SCH ×2 (08:33→16:49)
[2018-04-02] MEDS: MAGNESIUM OXIDE 250 MG TABLET PO SCH ×2 (08:34→16:50)
[2018-04-02] MEDS: CARVEDILOL 3.125 MG TABLET PO SCH ×2 (08:34→16:59)
--- NOTE | 2018-04-02 10:04 | NUR ---
Patient noted sitting up in bed, no complaints of pain at this time, no signs of distress noted, call light in reach, bed locked and in lowest position, all needs met at this time
[2018-04-02 10:45] VITALS: BP 154/87
--- NOTE | 2018-04-02 15:29 | NUR ---
MD Zapata orders to discontinue chinchilla catheter, chinchilla discontinued at this time, will monitor for urine output
[2018-04-02] MEDS: GLIMEPIRIDE 2 MG TABLET PO SCH (16:49)
[2018-04-02 19:26] VITALS: BP 122/54
[2018-04-02] MEDS: ENOXAPARIN SODIUM 40 MG/0.4 ML DISP.SYRIN SQ SCH (21:00)
[2018-04-02] MEDS: DOCUSATE SODIUM 100 MG CAPSULE PO SCH (21:03)
[2018-04-02] MEDS: ATORVASTATIN 20 MG TABLET PO SCH (21:03)
[2018-04-03 04:30] VITALS: BP 133/63
[2018-04-03] MEDS: PANTOPRAZOLE SODIUM 40 MG TABLET.DR PO SCH (06:24)
[2018-04-03] MEDS: LEVOTHYROXINE SODIUM 50 MCG TABLET PO SCH (06:24)
[2018-04-03] MEDS: BLOOD SUGAR DIAGNOSTIC 1 EACH STRIP VI SCH ×4 (06:37→20:12)
[2018-04-03 07:05] VITALS: BP 150/72
[2018-04-03] MEDS: GLIMEPIRIDE 4 MG TABLET PO SCH (08:10)
[2018-04-03] MEDS: VALSARTAN 160 MG TABLET PO SCH (08:10)
[2018-04-03] MEDS: MULTIVIT, IRON, MIN NO. 8, FA TABLET PO SCH (08:10)
[2018-04-03] MEDS: MAGNESIUM OXIDE 250 MG TABLET PO SCH ×2 (08:10→17:18)
[2018-04-03] MEDS: ASPIRIN EC 81 MG TABLET.DR PO SCH (08:10)
[2018-04-03] MEDS: FERROUS SULFATE 325 MG TABEC PO SCH ×2 (08:11→17:19)
[2018-04-03] MEDS: ASCORBIC ACID 500 MG TABLET PO SCH (08:11)
[2018-04-03] MEDS: CARVEDILOL 3.125 MG TABLET PO SCH ×2 (08:11→17:19)
[2018-04-03] MEDS: INSULIN REGULAR, HUMAN 300 UNIT/3 ML VIAL SQ PRN ×4 (08:26→20:15)
--- NOTE | 2018-04-03 11:00 | NUR ---
Patient continue therapy for ambulation and ADL ability. Continue blood sugar monitoring with sliding scale insulin protocol. seen and examined by MD Zapata with no new order. no complaint of pain/discomfort. will continue monitor
[2018-04-03 16:00] VITALS: BP 110/53
--- NOTE | 2018-04-03 16:00 | NUR ---
INTERDISCIPLINARY TEAM CONFERENCE
[2018-04-03] MEDS: GLIMEPIRIDE 2 MG TABLET PO SCH (17:19)
--- NOTE | 2018-04-03 19:00 | NUR ---
Awake during initial rounds. Denies any pain/discomforts at this time. Safety measure and fall precaution maintained. Continue care as planned.
[2018-04-03 19:45] VITALS: BP 120/65
[2018-04-03] MEDS: ENOXAPARIN SODIUM 40 MG/0.4 ML DISP.SYRIN SQ SCH (20:12)
[2018-04-03] MEDS: DOCUSATE SODIUM 100 MG CAPSULE PO SCH (20:12)
[2018-04-03] MEDS: ATORVASTATIN 20 MG TABLET PO SCH (20:12)
[2018-04-04 04:30] VITALS: BP 131/62
[2018-04-04] MEDS: BLOOD SUGAR DIAGNOSTIC 1 EACH STRIP VI SCH ×4 (06:23→20:52)
[2018-04-04] MEDS: LEVOTHYROXINE SODIUM 50 MCG TABLET PO SCH (06:24)
[2018-04-04] MEDS: PANTOPRAZOLE SODIUM 40 MG TABLET.DR PO SCH (06:24)
--- NOTE | 2018-04-04 07:05 | NUR ---
Shift End Report: VSS. No complaint presented all night. No s/s of hypo/hyperglycemia. No s/s of hypo/hypertension. No fall/injury. Wound care done as ordered and needed. All needs attended and met. No significant event reported all night. Continue rehab plan of care
[2018-04-04 08:00] VITALS: BP 151/65
--- NOTE | 2018-04-04 08:00 | NUR ---
Received patient awake, alert, sitting on the wheelchair, not in any form of acute distress. She denies any pain or discomfort at this time. Call light and frequently used items placed within reach. Assisted with her needs.
[2018-04-04] MEDS: MAGNESIUM OXIDE 250 MG TABLET PO SCH ×2 (08:28→17:03)
[2018-04-04] MEDS: GLIMEPIRIDE 4 MG TABLET PO SCH (08:28)
[2018-04-04] MEDS: ASPIRIN EC 81 MG TABLET.DR PO SCH (08:28)
[2018-04-04] MEDS: MULTIVIT, IRON, MIN NO. 8, FA TABLET PO SCH (08:28)
[2018-04-04] MEDS: CARVEDILOL 3.125 MG TABLET PO SCH ×2 (08:28→17:11)
[2018-04-04] MEDS: FERROUS SULFATE 325 MG TABEC PO SCH ×2 (08:28→17:03)
[2018-04-04] MEDS: VALSARTAN 160 MG TABLET PO SCH (08:29)
[2018-04-04] MEDS: ASCORBIC ACID 500 MG TABLET PO SCH (08:29)
[2018-04-04] MEDS: INSULIN REGULAR, HUMAN 300 UNIT/3 ML VIAL SQ PRN ×4 (08:37→20:54)
[2018-04-04 11:32] LABS: BASOPHILS # (AUTO) 0.1 K/uL (0.0-8.0); BASOPHILS % (AUTO) 0.4 % (0.0-2.0); EOSINOPHILS # (AUTO) 0.3 K/uL (0.0-0.7); HEMATOCRIT 30.2 % (31.2-41.9); HEMOGLOBIN 10.2 g/dL (10.9-14.3); LYMPHOCYTES # (AUTO) 2.3 K/uL (20.0-40.0); LYMPHOCYTES % (AUTO) 14.9 % (20.5-51.5); MEAN CORPUSCULAR HEMOGLOBIN 29.8 uug (24.7-32.8); MEAN CORPUSCULAR HGB CONC 34 g/dL (32.3-35.6); MEAN CORPUSCULAR VOLUME 88.1 fL (75.5-95.3); MONOCYTES % (AUTO) 6.8 % (0.0-11.0); NEUTROPHILS # (AUTO) 11.5 K/uL (1.8-8.9); NEUTROPHILS % (AUTO) 75.9 % (38.5-71.5); PLATELET COUNT (AUTO) 328 K/uL (179-408); RED BLOOD CELL COUNT(AUTO) 3.43 MIL/uL (3.63-4.92); WHITE BLOOD COUNT (AUTO) 15.2 K/uL (3.8-11.8)
[2018-04-04 11:33] LABS: POTASSIUM 4.3 mmol/L (3.5-5.1)
--- NOTE | 2018-04-04 14:15 | NUR ---
Patient up ambulating with walker with physical therapist, not in distress. No complain of discomfort at this time.
[2018-04-04] MEDS: GLIMEPIRIDE 2 MG TABLET PO SCH (17:03)
[2018-04-04 17:22] VITALS: BP_SYST 126; BP_SYST 94; BP_DIAS 55; BP_DIAS 76
--- NOTE | 2018-04-04 19:05 | NUR ---
In bed, awake. Denies any pain/discomforts at this time. Enjoyed watching TV at this time. Safety measure and fall precaution maintained. Continue care as planned.
[2018-04-04] MEDS: ENOXAPARIN SODIUM 40 MG/0.4 ML DISP.SYRIN SQ SCH (20:31)
[2018-04-04] MEDS: DOCUSATE SODIUM 100 MG CAPSULE PO SCH (20:31)
[2018-04-04] MEDS: ATORVASTATIN 20 MG TABLET PO SCH (20:31)
[2018-04-04 21:27] VITALS: BP 110/50
[2018-04-05 04:16] VITALS: BP 139/66
[2018-04-05] MEDS: LEVOTHYROXINE SODIUM 50 MCG TABLET PO SCH (06:13)
[2018-04-05] MEDS: PANTOPRAZOLE SODIUM 40 MG TABLET.DR PO SCH (06:13)
[2018-04-05] MEDS: BLOOD SUGAR DIAGNOSTIC 1 EACH STRIP VI SCH ×2 (06:15→12:08)
--- NOTE | 2018-04-05 06:53 | NUR ---
Shift End Report: VSS. All needs attended and met. No complaint presented all night. No fall/injury. Slept well. No significant event reported all night. Continue current rehab plan of care.
[2018-04-05 07:00] VITALS: BP 178/88
--- NOTE | 2018-04-05 07:30 | NUR ---
RECEIVED REPORT FORM ADMINISTRATIVE SUPPORT COORDINATOR NURSE. UPON ROUNDING PATIENT IN CHAIR, AOX3, DENIES PAIN OR DISCOMFORT AT THIS TIME. ALL MEEDS MET AT THIS TIME. PATIENT IS AWARE OF DISCHARGE PLAN FOR TODAY. WILL CONTINUE TO MONITOR FOR SAFETY AND COMFORT.
[2018-04-05] MEDS: CARVEDILOL 3.125 MG TABLET PO SCH (09:02)
[2018-04-05] MEDS: ASPIRIN EC 81 MG TABLET.DR PO SCH (09:03)
[2018-04-05] MEDS: GLIMEPIRIDE 4 MG TABLET PO SCH (09:03)
[2018-04-05 09:04] VITALS: BP 178/88
[2018-04-05] MEDS: ASCORBIC ACID 500 MG TABLET PO SCH (09:04)
[2018-04-05] MEDS: VALSARTAN 160 MG TABLET PO SCH (09:04)
[2018-04-05] MEDS: MAGNESIUM OXIDE 250 MG TABLET PO SCH (09:05)
[2018-04-05] MEDS: MULTIVIT, IRON, MIN NO. 8, FA TABLET PO SCH (09:05)
[2018-04-05] MEDS: FERROUS SULFATE 325 MG TABEC PO SCH (09:05)
[2018-04-05] MEDS: INSULIN REGULAR, HUMAN 300 UNIT/3 ML VIAL SQ PRN ×2 (09:08→12:09)
[2018-04-05 10:48] LABS: *BILIRUBIN,URIN NEGATIVE (NEGATIVE); *BLOOD, URINE 2+ (NEGATIVE); *CLARITY,URINE CLOUDY (CLEAR); *COLOR,URINE YELLOW (YELLOW); *KETONES,URINE NEGATIVE (NEGATIVE); *UROBILINOGEN,URINE 0.2 E.U./dl (NORMAL); LEUKOCYTE ESTERASE ,URINE 2+ (NEGATIVE); NITRITE, URINE POSITIVE (NEGATIVE); UGLUCOSE NEGATIVE (NEGATIVE)
[2018-04-05 11:02] LABS: BACTERIA,URINE MANY /HPF (NONE SEEN); SQUAMOUS EPITHELIAL CELL,UR FEW /HPF (NONE SEEN); WBC,URINE 80-100 /HPF (0-3)
[2018-04-05] MEDS ORDERED: SULFAMETH/TRIMETH 800/160 MG TABLET PO SCH (13:30)
--- NOTE | 2018-04-05 14:25 | NUR ---
DISCHARGED PATIENT VIA AMBULANCE TO [facility]. REPORT GIVEN TO ILEANA BARNHART AT THE FACILITY. PATIENT STABLE UPON DISCHARGE. DISCHARGE INSTRUCTIONS/MEDICATION LIST GIVEN TO PATIENT AND SIGNED.
== END 2018-04-05 14:25 | DRG 559 ==
PROVIDERS: ADMIT Physical Medicine & Rehabilitation Pain Medicine; ATTEND Physical Medicine & Rehabilitation Pain Medicine
DX: S32.591D Other specified fracture of right pubis, subsequent encounter for fracture with routine healing (principal); E43 Unspecified severe protein-calorie malnutrition; S22.41XD Multiple fractures of ribs, right side, subsequent encounter for fracture with routine healing; W18.30XD Fall on same level, unspecified, subsequent encounter; D63.8 Anemia in other chronic diseases classified elsewhere; E11.9 Type 2 diabetes mellitus without complications; E78.5 Hyperlipidemia, unspecified; E83.42 Hypomagnesemia; I10 Essential (primary) hypertension; Z91.81 History of falling; R29.6 Repeated falls; R53.1 Weakness; Y93.9 Activity, unspecified; Y92.9 Unspecified place or not applicable; E86.1 Hypovolemia; S81.801D Unspecified open wound, right lower leg, subsequent encounter; W22.8XXD Striking against or struck by other objects, subsequent encounter
CPT/HCPCS: 36415; 70030-TC; 71045; 83735; 84100; 84443; 85025; 92526; 92610; 97110; 97112; 97116; 97165; 97530; 97535; A4663; J1650; J1815; J3475; J7030

== ENCOUNTER 2018-10-15 13:11 | Inpatient (IN) | payer MEDICARE, MEDICAID ==
[~2018-10-15] VITALS: Ht 162.6 cm; Wt 58.1 kg
[~2018-10-15 13:11] MED LIST changes: +ACET-2154 PO; +ASPI-605 PO; -CHOL10002 PO; +ENOX40DI SQ; +GLIM2TAB2 PO; -LINA5TAB PO; +MAGN250T37 PO; -METF-440 PO; +OMEG1CAP PO
[2018-10-15 15:35] VITALS: BP 140/64
[2018-10-15] MEDS ORDERED: LINA5TAB PO (15:46)
[2018-10-15] MEDS: Z GUARD REMEDY PASTE 57 GM TUBE TOP PRN (17:07)
[2018-10-15] MEDS ORDERED: ACETAMINOPHEN 325 MG TABLET PO PRN (18:00)
[2018-10-15] MEDS ORDERED: DEXTROSE 50% 50 ML DISP.SYRIN IV PRN (18:00)
[2018-10-15] MEDS: GLIMEPIRIDE 2 MG TABLET PO SCH (19:26)
[2018-10-15 20:35] VITALS: BP 125/66
[2018-10-15] MEDS: DOCUSATE SODIUM 100 MG CAPSULE PO SCH (21:03)
[2018-10-15] MEDS: BLOOD SUGAR DIAGNOSTIC 1 EACH STRIP VI SCH (21:05)
[2018-10-15] MEDS: INSULIN REGULAR, HUMAN 300 UNIT/3 ML VIAL SQ PRN (21:24)
[2018-10-16 05:48] VITALS: BP 132/64
[2018-10-16] MEDS: PANTOPRAZOLE SODIUM 40 MG TABLET.DR PO SCH (06:23)
[2018-10-16] MEDS: BLOOD SUGAR DIAGNOSTIC 1 EACH STRIP VI SCH ×4 (06:50→20:34)
[2018-10-16 07:00] LABS: BILIRUBIN,TOTAL 0.4 mg/dL (0.2-1.0); MAGNESIUM 1.6 mg/dL (1.8-2.4); PHOSPHOROUS 3.8 mg/dL (2.5-4.9); POTASSIUM 4.2 mmol/L (3.5-5.1); THYROID STIMULATING HORMONE 2.952 mIU/mL (0.358-3.740); TOTAL PROTEIN, SERUM 6.4 g/dL (6.4-8.2)
[2018-10-16 07:07] LABS: BASOPHILS # (AUTO) 0.1 K/uL (0.0-8.0); BASOPHILS % (AUTO) 0.5 % (0.0-2.0); EOSINOPHILS # (AUTO) 0.4 K/uL (0.0-0.7); EOSINOPHILS % (AUTO) 3.2 % (0.0-7.0); HEMATOCRIT 29.5 % (31.2-41.9); LYMPHOCYTES # (AUTO) 2.4 K/uL (20.0-40.0); MEAN CORPUSCULAR HGB CONC 34 g/dL (32.3-35.6); MEAN CORPUSCULAR VOLUME 88.4 fL (75.5-95.3); MONOCYTES # (AUTO) 0.8 K/uL (2.0-10.0); NEUTROPHILS # (AUTO) 7.8 K/uL (1.8-8.9); NEUTROPHILS % (AUTO) 68.3 % (38.5-71.5); RED BLOOD CELL COUNT(AUTO) 3.34 MIL/uL (3.63-4.92); WHITE BLOOD COUNT (AUTO) 11.5 K/uL (3.8-11.8)
[2018-10-16 07:18] LABS: PLATELET COUNT (AUTO) 162 K/uL (179-408)
[2018-10-16 08:11] VITALS: BP 141/77
[2018-10-16] MEDS ORDERED: CARVEDILOL PHOSPHATE 10 MG PO SCH (09:00)
[2018-10-16] MEDS: GLIMEPIRIDE 4 MG TABLET PO SCH (09:24)
[2018-10-16] MEDS: MAGNESIUM OXIDE 250 MG TABLET PO SCH ×2 (09:24→17:08)
[2018-10-16] MEDS: ASPIRIN EC 81 MG TABLET.DR PO SCH (09:24)
[2018-10-16] MEDS: OMEGA-3 FATTY ACIDS/FISH OIL CAPSULE PO SCH ×3 (09:24→17:07)
[2018-10-16] MEDS: FERROUS SULFATE 325 MG TABEC PO SCH (09:24)
[2018-10-16] MEDS: METFORMIN HCL 500 MG TABLET PO SCH ×2 (09:24→17:13)
[2018-10-16] MEDS: PIOGLITAZONE HCL 15 MG TABLET PO SCH (09:24)
[2018-10-16] MEDS: LINAGLIPTIN 5 MG TABLET PO SCH (09:24)
[2018-10-16] MEDS: MULTIVITAMINS,THERAPEUTIC TABLET PO SCH (09:24)
[2018-10-16] MEDS: LEVOTHYROXINE SODIUM 50 MCG TABLET PO SCH (09:26)
[2018-10-16] MEDS: INSULIN REGULAR, HUMAN 300 UNIT/3 ML VIAL SQ PRN ×2 (09:29→11:18)
[2018-10-16] MEDS: GLIMEPIRIDE 2 MG TABLET PO SCH (17:12)
[2018-10-16 18:11] VITALS: BP 97/56
[2018-10-16] MEDS: CARVEDILOL 3.125 MG TABLET PO SCH (19:06)
[2018-10-16 20:27] VITALS: BP 110/64
[2018-10-16] MEDS: DOCUSATE SODIUM 100 MG CAPSULE PO SCH (20:33)
[2018-10-17 05:44] VITALS: BP 121/75
[2018-10-17 06:15] VITALS: BP 121/75
[2018-10-17] MEDS: PANTOPRAZOLE SODIUM 40 MG TABLET.DR PO SCH (06:58)
[2018-10-17] MEDS: LEVOTHYROXINE SODIUM 50 MCG TABLET PO SCH (06:58)
[2018-10-17] MEDS: BLOOD SUGAR DIAGNOSTIC 1 EACH STRIP VI SCH ×4 (07:05→21:01)
[2018-10-17] MEDS: FERROUS SULFATE 325 MG TABEC PO SCH (08:10)
[2018-10-17] MEDS: MAGNESIUM OXIDE 250 MG TABLET PO SCH ×2 (08:10→17:08)
[2018-10-17] MEDS: LINAGLIPTIN 5 MG TABLET PO SCH (08:10)
[2018-10-17] MEDS: OMEGA-3 FATTY ACIDS/FISH OIL CAPSULE PO SCH ×3 (08:10→17:08)
[2018-10-17] MEDS: ASPIRIN EC 81 MG TABLET.DR PO SCH (08:10)
[2018-10-17] MEDS: MULTIVITAMINS,THERAPEUTIC TABLET PO SCH (08:10)
[2018-10-17] MEDS: METFORMIN HCL 500 MG TABLET PO SCH ×2 (08:10→17:08)
[2018-10-17] MEDS: PIOGLITAZONE HCL 15 MG TABLET PO SCH (08:10)
[2018-10-17] MEDS: GLIMEPIRIDE 4 MG TABLET PO SCH (08:11)
[2018-10-17] MEDS: CARVEDILOL 3.125 MG TABLET PO SCH ×2 (08:12→17:00)
[2018-10-17] MEDS: LIDOCAINE 5% PATCH TD SCH (08:13)
[2018-10-17] MEDS: INSULIN REGULAR, HUMAN 300 UNIT/3 ML VIAL SQ PRN ×3 (08:15→17:14)
[2018-10-17] MEDS ORDERED: LIDOCAINE 5% PATCH TD SCH (09:00)
[2018-10-17] MEDS ORDERED: FLEET ENEMA 133 ML BOTTLE RC PRN (14:45)
[2018-10-17 16:38] VITALS: BP 97/53
[2018-10-17] MEDS: GLIMEPIRIDE 2 MG TABLET PO SCH (17:08)
[2018-10-17] MEDS: DOCUSATE SODIUM 100 MG CAPSULE PO SCH (20:55)
[2018-10-17 21:29] VITALS: BP 95/56
[2018-10-18 05:34] VITALS: BP 114/61
[2018-10-18] MEDS: PANTOPRAZOLE SODIUM 40 MG TABLET.DR PO SCH (06:50)
[2018-10-18] MEDS: LEVOTHYROXINE SODIUM 50 MCG TABLET PO SCH (06:50)
[2018-10-18] MEDS: PIOGLITAZONE HCL 15 MG TABLET PO SCH (08:11)
[2018-10-18] MEDS: FERROUS SULFATE 325 MG TABEC PO SCH (08:11)
[2018-10-18] MEDS: METFORMIN HCL 500 MG TABLET PO SCH ×2 (08:11→17:15)
[2018-10-18] MEDS: OMEGA-3 FATTY ACIDS/FISH OIL CAPSULE PO SCH ×3 (08:11→17:15)
[2018-10-18] MEDS: GLIMEPIRIDE 4 MG TABLET PO SCH (08:11)
[2018-10-18] MEDS: MULTIVITAMINS,THERAPEUTIC TABLET PO SCH (08:11)
[2018-10-18] MEDS: ASPIRIN EC 81 MG TABLET.DR PO SCH (08:11)
[2018-10-18] MEDS: LIDOCAINE 5% PATCH TD SCH (08:12)
[2018-10-18] MEDS: LINAGLIPTIN 5 MG TABLET PO SCH (08:12)
[2018-10-18] MEDS: MAGNESIUM OXIDE 250 MG TABLET PO SCH ×2 (08:12→17:15)
[2018-10-18] MEDS: CARVEDILOL 3.125 MG TABLET PO SCH ×2 (08:13→17:00)
[2018-10-18 09:45] VITALS: BP 140/67
[2018-10-18 16:00] VITALS: BP 102/55
[2018-10-18] MEDS: GLIMEPIRIDE 2 MG TABLET PO SCH (17:15)
[2018-10-18 20:16] VITALS: BP 116/58
[2018-10-18] MEDS: DOCUSATE SODIUM 100 MG CAPSULE PO SCH (22:19)
[2018-10-19 04:00] VITALS: BP 119/57
[2018-10-19] MEDS: PANTOPRAZOLE SODIUM 40 MG TABLET.DR PO SCH (06:31)
[2018-10-19] MEDS: LEVOTHYROXINE SODIUM 50 MCG TABLET PO SCH (06:31)
[2018-10-19] MEDS: MAGNESIUM OXIDE 250 MG TABLET PO SCH ×2 (08:12→16:54)
[2018-10-19] MEDS: PIOGLITAZONE HCL 15 MG TABLET PO SCH (08:12)
[2018-10-19] MEDS: GLIMEPIRIDE 4 MG TABLET PO SCH (08:13)
[2018-10-19] MEDS: CARVEDILOL 3.125 MG TABLET PO SCH ×2 (08:13→16:54)
[2018-10-19] MEDS: FERROUS SULFATE 325 MG TABEC PO SCH (08:13)
[2018-10-19] MEDS: MULTIVITAMINS,THERAPEUTIC TABLET PO SCH (08:13)
[2018-10-19] MEDS: OMEGA-3 FATTY ACIDS/FISH OIL CAPSULE PO SCH ×3 (08:13→16:54)
[2018-10-19] MEDS: LINAGLIPTIN 5 MG TABLET PO SCH (08:13)
[2018-10-19] MEDS: ASPIRIN EC 81 MG TABLET.DR PO SCH (08:13)
[2018-10-19] MEDS: METFORMIN HCL 500 MG TABLET PO SCH ×2 (08:13→17:16)
[2018-10-19] MEDS: LIDOCAINE 5% PATCH TD SCH (08:14)
[2018-10-19 08:23] VITALS: BP 141/61
[2018-10-19 15:29] VITALS: BP 125/60
[2018-10-19] MEDS: GLIMEPIRIDE 2 MG TABLET PO SCH (17:16)
[2018-10-19] MEDS: DOCUSATE SODIUM 100 MG CAPSULE PO SCH (20:13)
[2018-10-19 21:05] VITALS: BP 109/60
[2018-10-20 04:00] VITALS: BP 126/63
[2018-10-20] MEDS: PANTOPRAZOLE SODIUM 40 MG TABLET.DR PO SCH (06:52)
[2018-10-20] MEDS: LEVOTHYROXINE SODIUM 50 MCG TABLET PO SCH (06:52)
[2018-10-20 07:37] VITALS: BP 122/62
[2018-10-20] MEDS: PIOGLITAZONE HCL 15 MG TABLET PO SCH (08:41)
[2018-10-20] MEDS: OMEGA-3 FATTY ACIDS/FISH OIL CAPSULE PO SCH ×3 (08:41→17:57)
[2018-10-20] MEDS: LINAGLIPTIN 5 MG TABLET PO SCH (08:41)
[2018-10-20] MEDS: FERROUS SULFATE 325 MG TABEC PO SCH (08:42)
[2018-10-20] MEDS: METFORMIN HCL 500 MG TABLET PO SCH ×2 (08:42→17:57)
[2018-10-20] MEDS: MAGNESIUM OXIDE 250 MG TABLET PO SCH ×2 (08:42→17:56)
[2018-10-20] MEDS: CARVEDILOL 3.125 MG TABLET PO SCH ×2 (08:42→17:57)
[2018-10-20] MEDS: GLIMEPIRIDE 4 MG TABLET PO SCH (08:42)
[2018-10-20] MEDS: MULTIVITAMINS,THERAPEUTIC TABLET PO SCH (08:42)
[2018-10-20] MEDS: LIDOCAINE 5% PATCH TD SCH (08:43)
[2018-10-20] MEDS: ASPIRIN EC 81 MG TABLET.DR PO SCH (08:43)
[2018-10-20 16:18] VITALS: BP 118/59
[2018-10-20] MEDS: GLIMEPIRIDE 2 MG TABLET PO SCH (17:57)
[2018-10-20 19:33] VITALS: BP 115/59
[2018-10-20] MEDS: DOCUSATE SODIUM 100 MG CAPSULE PO SCH (20:44)
[2018-10-21 05:31] VITALS: BP 121/55
[2018-10-21] MEDS: PANTOPRAZOLE SODIUM 40 MG TABLET.DR PO SCH (06:04)
[2018-10-21] MEDS: LEVOTHYROXINE SODIUM 50 MCG TABLET PO SCH (06:04)
[2018-10-21 07:46] VITALS: BP 138/76
[2018-10-21] MEDS: METFORMIN HCL 500 MG TABLET PO SCH ×2 (08:18→17:00)
[2018-10-21] MEDS: MULTIVITAMINS,THERAPEUTIC TABLET PO SCH (08:18)
[2018-10-21] MEDS: FERROUS SULFATE 325 MG TABEC PO SCH (08:18)
[2018-10-21] MEDS: GLIMEPIRIDE 4 MG TABLET PO SCH (08:18)
[2018-10-21] MEDS: MAGNESIUM OXIDE 250 MG TABLET PO SCH ×2 (08:18→17:00)
[2018-10-21] MEDS: ASPIRIN EC 81 MG TABLET.DR PO SCH (08:18)
[2018-10-21] MEDS: LINAGLIPTIN 5 MG TABLET PO SCH (08:18)
[2018-10-21] MEDS: CARVEDILOL 3.125 MG TABLET PO SCH ×2 (08:19→17:00)
[2018-10-21] MEDS: OMEGA-3 FATTY ACIDS/FISH OIL CAPSULE PO SCH ×3 (08:19→17:00)
[2018-10-21] MEDS: PIOGLITAZONE HCL 15 MG TABLET PO SCH (08:19)
[2018-10-21] MEDS: LIDOCAINE 5% PATCH TD SCH (08:36)
[2018-10-21 16:21] VITALS: BP 106/57
[2018-10-21] MEDS: GLIMEPIRIDE 2 MG TABLET PO SCH (17:03)
[2018-10-21 19:29] VITALS: BP 101/61
[2018-10-21] MEDS: DOCUSATE SODIUM 100 MG CAPSULE PO SCH (20:48)
[2018-10-22 04:55] VITALS: BP 140/66
[2018-10-22] MEDS: LEVOTHYROXINE SODIUM 50 MCG TABLET PO SCH (06:41)
[2018-10-22] MEDS: PANTOPRAZOLE SODIUM 40 MG TABLET.DR PO SCH (06:41)
[2018-10-22] MEDS: OMEGA-3 FATTY ACIDS/FISH OIL CAPSULE PO SCH ×3 (08:29→16:54)
[2018-10-22] MEDS: PIOGLITAZONE HCL 15 MG TABLET PO SCH (08:29)
[2018-10-22] MEDS: MULTIVITAMINS,THERAPEUTIC TABLET PO SCH (08:29)
[2018-10-22] MEDS: METFORMIN HCL 500 MG TABLET PO SCH ×2 (08:29→17:02)
[2018-10-22] MEDS: MAGNESIUM OXIDE 250 MG TABLET PO SCH ×2 (08:29→16:54)
[2018-10-22] MEDS: ASPIRIN EC 81 MG TABLET.DR PO SCH (08:29)
[2018-10-22] MEDS: FERROUS SULFATE 325 MG TABEC PO SCH (08:29)
[2018-10-22] MEDS: CARVEDILOL 3.125 MG TABLET PO SCH ×2 (08:30→16:54)
[2018-10-22] MEDS: GLIMEPIRIDE 4 MG TABLET PO SCH (08:30)
[2018-10-22] MEDS: LIDOCAINE 5% PATCH TD SCH (08:30)
[2018-10-22] MEDS: LINAGLIPTIN 5 MG TABLET PO SCH (09:48)
[2018-10-22 16:40] VITALS: BP 119/62
[2018-10-22] MEDS: GLIMEPIRIDE 2 MG TABLET PO SCH (17:02)
[2018-10-22] MEDS: DOCUSATE SODIUM 100 MG CAPSULE PO SCH (20:29)
[2018-10-22 21:25] VITALS: BP 91/46
[2018-10-23] MEDS: LEVOTHYROXINE SODIUM 50 MCG TABLET PO SCH (06:41)
[2018-10-23] MEDS: PANTOPRAZOLE SODIUM 40 MG TABLET.DR PO SCH (06:41)
[2018-10-23 07:10] VITALS: BP 134/72
[2018-10-23 07:26] VITALS: BP 134/74
[2018-10-23] MEDS: METFORMIN HCL 500 MG TABLET PO SCH ×2 (08:19→17:43)
[2018-10-23] MEDS: MULTIVITAMINS,THERAPEUTIC TABLET PO SCH (08:19)
[2018-10-23] MEDS: ASPIRIN EC 81 MG TABLET.DR PO SCH (08:19)
[2018-10-23] MEDS: OMEGA-3 FATTY ACIDS/FISH OIL CAPSULE PO SCH ×3 (08:19→17:44)
[2018-10-23] MEDS: FERROUS SULFATE 325 MG TABEC PO SCH (08:19)
[2018-10-23] MEDS: MAGNESIUM OXIDE 250 MG TABLET PO SCH ×2 (08:20→17:44)
[2018-10-23] MEDS: LIDOCAINE 5% PATCH TD SCH (08:20)
[2018-10-23] MEDS: GLIMEPIRIDE 4 MG TABLET PO SCH (08:22)
[2018-10-23] MEDS: LINAGLIPTIN 5 MG TABLET PO SCH (08:23)
[2018-10-23] MEDS: PIOGLITAZONE HCL 15 MG TABLET PO SCH (08:23)
[2018-10-23] MEDS: CARVEDILOL 3.125 MG TABLET PO SCH ×2 (08:24→17:00)
[2018-10-23 16:36] VITALS: BP 101/58
[2018-10-23] MEDS: GLIMEPIRIDE 2 MG TABLET PO SCH (17:43)
[2018-10-23 20:14] VITALS: BP 115/63
[2018-10-23] MEDS: DOCUSATE SODIUM 100 MG CAPSULE PO SCH (20:28)
[2018-10-24 04:00] VITALS: BP 140/67
[2018-10-24] MEDS: PANTOPRAZOLE SODIUM 40 MG TABLET.DR PO SCH (06:09)
[2018-10-24] MEDS: LEVOTHYROXINE SODIUM 50 MCG TABLET PO SCH (06:09)
[2018-10-24 08:00] VITALS: BP 123/67
[2018-10-24] MEDS: METFORMIN HCL 500 MG TABLET PO SCH ×2 (08:47→17:01)
[2018-10-24] MEDS: MULTIVITAMINS,THERAPEUTIC TABLET PO SCH (08:47)
[2018-10-24] MEDS: ASPIRIN EC 81 MG TABLET.DR PO SCH (08:48)
[2018-10-24] MEDS: FERROUS SULFATE 325 MG TABEC PO SCH (08:48)
[2018-10-24] MEDS: LIDOCAINE 5% PATCH TD SCH (08:48)
[2018-10-24] MEDS: MAGNESIUM OXIDE 250 MG TABLET PO SCH ×2 (08:49→17:00)
[2018-10-24] MEDS: OMEGA-3 FATTY ACIDS/FISH OIL CAPSULE PO SCH ×3 (08:49→16:59)
[2018-10-24] MEDS: LINAGLIPTIN 5 MG TABLET PO SCH (08:50)
[2018-10-24] MEDS: PIOGLITAZONE HCL 15 MG TABLET PO SCH (08:50)
[2018-10-24] MEDS: GLIMEPIRIDE 4 MG TABLET PO SCH (08:50)
[2018-10-24] MEDS: CARVEDILOL 3.125 MG TABLET PO SCH ×2 (08:51→16:59)
[2018-10-24 16:33] VITALS: BP 93/53
[2018-10-24] MEDS: GLIMEPIRIDE 2 MG TABLET PO SCH (17:00)
[2018-10-24 20:27] VITALS: BP 106/61
[2018-10-24] MEDS: DOCUSATE SODIUM 100 MG CAPSULE PO SCH (21:27)
[2018-10-25 05:10] VITALS: BP 147/67
[2018-10-25] MEDS: PANTOPRAZOLE SODIUM 40 MG TABLET.DR PO SCH (06:10)
[2018-10-25] MEDS: LEVOTHYROXINE SODIUM 50 MCG TABLET PO SCH (06:10)
[2018-10-25 07:56] VITALS: BP 139/70
[2018-10-25 07:58] LABS: BASOPHILS # (AUTO) 0.1 K/uL (0.0-8.0); BASOPHILS % (AUTO) 0.6 % (0.0-2.0); EOSINOPHILS # (AUTO) 0.4 K/uL (0.0-0.7); EOSINOPHILS % (AUTO) 3.8 % (0.0-7.0); HEMATOCRIT 31.7 % (31.2-41.9); HEMOGLOBIN 10.8 g/dL (10.9-14.3); LYMPHOCYTES # (AUTO) 2.1 K/uL (20.0-40.0); LYMPHOCYTES % (AUTO) 19.6 % (20.5-51.5); MEAN CORPUSCULAR HEMOGLOBIN 30.3 uug (24.7-32.8); MEAN CORPUSCULAR HGB CONC 34 g/dL (32.3-35.6); MEAN CORPUSCULAR VOLUME 88.8 fL (75.5-95.3); MONOCYTES # (AUTO) 0.8 K/uL (2.0-10.0); MONOCYTES % (AUTO) 7.1 % (0.0-11.0); NEUTROPHILS # (AUTO) 7.3 K/uL (1.8-8.9); NEUTROPHILS % (AUTO) 68.9 % (38.5-71.5); PLATELET COUNT (AUTO) 227 K/uL (179-408); RED BLOOD CELL COUNT(AUTO) 3.56 MIL/uL (3.63-4.92); WHITE BLOOD COUNT (AUTO) 10.7 K/uL (3.8-11.8)
[2018-10-25] MEDS: OMEGA-3 FATTY ACIDS/FISH OIL CAPSULE PO SCH ×3 (08:35→17:46)
[2018-10-25] MEDS: LINAGLIPTIN 5 MG TABLET PO SCH (08:35)
[2018-10-25] MEDS: MAGNESIUM OXIDE 250 MG TABLET PO SCH ×2 (08:35→17:51)
[2018-10-25] MEDS: CARVEDILOL 3.125 MG TABLET PO SCH ×2 (08:36→17:44)
[2018-10-25] MEDS: MULTIVITAMINS,THERAPEUTIC TABLET PO SCH (08:36)
[2018-10-25] MEDS: PIOGLITAZONE HCL 15 MG TABLET PO SCH (08:36)
[2018-10-25] MEDS: GLIMEPIRIDE 4 MG TABLET PO SCH (08:36)
[2018-10-25] MEDS: ASPIRIN EC 81 MG TABLET.DR PO SCH (08:36)
[2018-10-25] MEDS: FERROUS SULFATE 325 MG TABEC PO SCH (08:36)
[2018-10-25] MEDS: LIDOCAINE 5% PATCH TD SCH (08:40)
[2018-10-25] MEDS: METFORMIN HCL 500 MG TABLET PO SCH ×2 (08:46→17:43)
[2018-10-25 08:53] LABS: BILIRUBIN,TOTAL 0.2 mg/dL (0.2-1.0); CREATININE 0.9 mg/dL (0.6-1.3); MAGNESIUM 1.8 mg/dL (1.8-2.4); PHOSPHOROUS 3.2 mg/dL (2.5-4.9); POTASSIUM 3.7 mmol/L (3.5-5.1); TOTAL PROTEIN, SERUM 6.9 g/dL (6.4-8.2)
[2018-10-25 15:55] VITALS: BP 113/56
[2018-10-25] MEDS: GLIMEPIRIDE 2 MG TABLET PO SCH (17:45)
[2018-10-25 20:34] VITALS: BP 101/55
[2018-10-25] MEDS: DOCUSATE SODIUM 100 MG CAPSULE PO SCH (20:37)
[2018-10-26 04:00] VITALS: BP 130/71
[2018-10-26] MEDS: LEVOTHYROXINE SODIUM 50 MCG TABLET PO SCH (06:10)
[2018-10-26] MEDS: PANTOPRAZOLE SODIUM 40 MG TABLET.DR PO SCH (06:10)
[2018-10-26] MEDS: METFORMIN HCL 500 MG TABLET PO SCH ×2 (08:56→17:25)
[2018-10-26] MEDS: MULTIVITAMINS,THERAPEUTIC TABLET PO SCH (08:57)
[2018-10-26] MEDS: ASPIRIN EC 81 MG TABLET.DR PO SCH (08:57)
[2018-10-26] MEDS: FERROUS SULFATE 325 MG TABEC PO SCH (08:57)
[2018-10-26] MEDS: PIOGLITAZONE HCL 15 MG TABLET PO SCH (08:57)
[2018-10-26] MEDS: GLIMEPIRIDE 4 MG TABLET PO SCH (08:58)
[2018-10-26] MEDS: LINAGLIPTIN 5 MG TABLET PO SCH (08:58)
[2018-10-26] MEDS: OMEGA-3 FATTY ACIDS/FISH OIL CAPSULE PO SCH ×3 (08:58→17:27)
[2018-10-26] MEDS: CARVEDILOL 3.125 MG TABLET PO SCH ×2 (08:59→17:00)
[2018-10-26] MEDS: MAGNESIUM OXIDE 250 MG TABLET PO SCH ×2 (08:59→17:26)
[2018-10-26] MEDS: LIDOCAINE 5% PATCH TD SCH (09:00)
[2018-10-26 16:58] VITALS: BP 103/55
[2018-10-26] MEDS: GLIMEPIRIDE 2 MG TABLET PO SCH (17:25)
[2018-10-26 19:30] VITALS: BP 137/67
[2018-10-26] MEDS: DOCUSATE SODIUM 100 MG CAPSULE PO SCH (20:28)
[2018-10-27 05:00] VITALS: BP 118/60
[2018-10-27] MEDS: PANTOPRAZOLE SODIUM 40 MG TABLET.DR PO SCH (06:15)
[2018-10-27] MEDS: LEVOTHYROXINE SODIUM 50 MCG TABLET PO SCH (06:15)
[2018-10-27 08:09] LABS: BASOPHILS # (AUTO) 0.1 K/uL (0.0-8.0); BASOPHILS % (AUTO) 0.7 % (0.0-2.0); EOSINOPHILS # (AUTO) 0.2 K/uL (0.0-0.7); EOSINOPHILS % (AUTO) 2.3 % (0.0-7.0); HEMATOCRIT 30.9 % (31.2-41.9); HEMOGLOBIN 10.7 g/dL (10.9-14.3); LYMPHOCYTES % (AUTO) 19.2 % (20.5-51.5); MEAN CORPUSCULAR HEMOGLOBIN 30.4 uug (24.7-32.8); MEAN CORPUSCULAR HGB CONC 35 g/dL (32.3-35.6); MEAN CORPUSCULAR VOLUME 88.2 fL (75.5-95.3); MONOCYTES # (AUTO) 0.5 K/uL (2.0-10.0); MONOCYTES % (AUTO) 5.2 % (0.0-11.0); NEUTROPHILS # (AUTO) 7.6 K/uL (1.8-8.9); NEUTROPHILS % (AUTO) 72.6 % (38.5-71.5); PLATELET COUNT (AUTO) 221 K/uL (179-408); RED BLOOD CELL COUNT(AUTO) 3.51 MIL/uL (3.63-4.92); WHITE BLOOD COUNT (AUTO) 10.5 K/uL (3.8-11.8)
[2018-10-27 08:21] LABS: CREATININE 0.9 mg/dL (0.6-1.3); MAGNESIUM 1.6 mg/dL (1.8-2.4); PHOSPHOROUS 2.9 mg/dL (2.5-4.9); POTASSIUM 3.9 mmol/L (3.5-5.1)
[2018-10-27] MEDS: MULTIVITAMINS,THERAPEUTIC TABLET PO SCH (08:34)
[2018-10-27] MEDS: METFORMIN HCL 500 MG TABLET PO SCH ×2 (08:34→17:08)
[2018-10-27] MEDS: OMEGA-3 FATTY ACIDS/FISH OIL CAPSULE PO SCH ×3 (08:34→16:46)
[2018-10-27] MEDS: FERROUS SULFATE 325 MG TABEC PO SCH (08:34)
[2018-10-27] MEDS: CARVEDILOL 3.125 MG TABLET PO SCH ×2 (08:34→16:45)
[2018-10-27] MEDS: LINAGLIPTIN 5 MG TABLET PO SCH (08:35)
[2018-10-27] MEDS: LIDOCAINE 5% PATCH TD SCH (08:35)
[2018-10-27] MEDS: PIOGLITAZONE HCL 15 MG TABLET PO SCH (08:35)
[2018-10-27] MEDS: GLIMEPIRIDE 4 MG TABLET PO SCH (08:35)
[2018-10-27] MEDS: MAGNESIUM OXIDE 250 MG TABLET PO SCH ×2 (08:35→16:46)
[2018-10-27] MEDS: ASPIRIN EC 81 MG TABLET.DR PO SCH (08:35)
[2018-10-27 10:19] VITALS: BP 158/77
[2018-10-27] MEDS ORDERED: MAGNESIUM OXIDE 400 MG TABLET PO ONE (11:00)
[2018-10-27 16:47] VITALS: BP 102/61
[2018-10-27] MEDS: GLIMEPIRIDE 2 MG TABLET PO SCH (17:08)
[2018-10-27] MEDS: DOCUSATE SODIUM 100 MG CAPSULE PO SCH (20:30)
[2018-10-27 21:04] VITALS: BP 98/49
[2018-10-28 05:57] VITALS: BP 124/55
[2018-10-28] MEDS: LEVOTHYROXINE SODIUM 50 MCG TABLET PO SCH (06:04)
[2018-10-28] MEDS: PANTOPRAZOLE SODIUM 40 MG TABLET.DR PO SCH (06:04)
[2018-10-28 07:30] VITALS: BP 131/60
[2018-10-28] MEDS: LINAGLIPTIN 5 MG TABLET PO SCH (08:35)
[2018-10-28] MEDS: PIOGLITAZONE HCL 15 MG TABLET PO SCH (08:35)
[2018-10-28] MEDS: OMEGA-3 FATTY ACIDS/FISH OIL CAPSULE PO SCH ×3 (08:36→17:05)
[2018-10-28] MEDS: MAGNESIUM OXIDE 250 MG TABLET PO SCH ×2 (08:36→17:06)
[2018-10-28] MEDS: CARVEDILOL 3.125 MG TABLET PO SCH ×2 (08:37→17:06)
[2018-10-28] MEDS: GLIMEPIRIDE 4 MG TABLET PO SCH (08:37)
[2018-10-28] MEDS: METFORMIN HCL 500 MG TABLET PO SCH ×2 (08:37→17:06)
[2018-10-28] MEDS: MULTIVITAMINS,THERAPEUTIC TABLET PO SCH (08:37)
[2018-10-28] MEDS: LIDOCAINE 5% PATCH TD SCH (08:37)
[2018-10-28] MEDS: ASPIRIN EC 81 MG TABLET.DR PO SCH (08:37)
[2018-10-28] MEDS: FERROUS SULFATE 325 MG TABEC PO SCH (08:37)
[2018-10-28 15:51] VITALS: BP 125/59
[2018-10-28] MEDS: GLIMEPIRIDE 2 MG TABLET PO SCH (17:05)
[2018-10-28] MEDS: DOCUSATE SODIUM 100 MG CAPSULE PO SCH (20:08)
[2018-10-28 20:26] VITALS: BP 119/61
[2018-10-29 05:23] VITALS: BP 144/74
[2018-10-29] MEDS: PANTOPRAZOLE SODIUM 40 MG TABLET.DR PO SCH (06:16)
[2018-10-29] MEDS: LEVOTHYROXINE SODIUM 50 MCG TABLET PO SCH (06:16)
[2018-10-29 07:55] VITALS: BP 149/74
[2018-10-29] MEDS: PIOGLITAZONE HCL 15 MG TABLET PO SCH (08:40)
[2018-10-29] MEDS: LINAGLIPTIN 5 MG TABLET PO SCH (08:40)
[2018-10-29] MEDS: FERROUS SULFATE 325 MG TABEC PO SCH (08:40)
[2018-10-29] MEDS: OMEGA-3 FATTY ACIDS/FISH OIL CAPSULE PO SCH ×3 (08:40→17:03)
[2018-10-29] MEDS: METFORMIN HCL 500 MG TABLET PO SCH ×2 (08:40→17:03)
[2018-10-29] MEDS: MULTIVITAMINS,THERAPEUTIC TABLET PO SCH (08:40)
[2018-10-29] MEDS: MAGNESIUM OXIDE 250 MG TABLET PO SCH ×2 (08:40→17:03)
[2018-10-29] MEDS: ASPIRIN EC 81 MG TABLET.DR PO SCH (08:41)
[2018-10-29] MEDS: CARVEDILOL 3.125 MG TABLET PO SCH ×2 (08:41→17:03)
[2018-10-29] MEDS: GLIMEPIRIDE 4 MG TABLET PO SCH (08:41)
[2018-10-29] MEDS: LIDOCAINE 5% PATCH TD SCH (08:41)
[2018-10-29] MEDS: Z GUARD REMEDY PASTE 57 GM TUBE TOP PRN (10:20)
[2018-10-29 16:30] VITALS: BP 145/70
[2018-10-29] MEDS: GLIMEPIRIDE 2 MG TABLET PO SCH (17:03)
[2018-10-29 19:52] VITALS: BP 100/52
[2018-10-29] MEDS: DOCUSATE SODIUM 100 MG CAPSULE PO SCH (20:06)
[2018-10-30 05:36] VITALS: BP 125/77
[2018-10-30] MEDS: LEVOTHYROXINE SODIUM 50 MCG TABLET PO SCH (06:12)
[2018-10-30] MEDS: PANTOPRAZOLE SODIUM 40 MG TABLET.DR PO SCH (06:12)
[2018-10-30 07:15] LABS: BASOPHILS % (AUTO) 0.3 % (0.0-2.0); EOSINOPHILS % (AUTO) 0.1 % (0.0-7.0); HEMATOCRIT 32.6 % (31.2-41.9); LYMPHOCYTES # (AUTO) 1.6 K/uL (20.0-40.0); LYMPHOCYTES % (AUTO) 14.5 % (20.5-51.5); MEAN CORPUSCULAR HEMOGLOBIN 29.7 uug (24.7-32.8); MEAN CORPUSCULAR HGB CONC 34 g/dL (32.3-35.6); MEAN CORPUSCULAR VOLUME 88.3 fL (75.5-95.3); MONOCYTES # (AUTO) 0.4 K/uL (2.0-10.0); MONOCYTES % (AUTO) 3.6 % (0.0-11.0); NEUTROPHILS # (AUTO) 9.1 K/uL (1.8-8.9); NEUTROPHILS % (AUTO) 81.5 % (38.5-71.5); PLATELET COUNT (AUTO) 233 K/uL (179-408); RED BLOOD CELL COUNT(AUTO) 3.69 MIL/uL (3.63-4.92); WHITE BLOOD COUNT (AUTO) 11.2 K/uL (3.8-11.8)
[2018-10-30 07:24] LABS: CREATININE 0.7 mg/dL (0.6-1.3); MAGNESIUM 1.8 mg/dL (1.8-2.4); PHOSPHOROUS 3.7 mg/dL (2.5-4.9); POTASSIUM 3.9 mmol/L (3.5-5.1)
[2018-10-30] MEDS: FERROUS SULFATE 325 MG TABEC PO SCH (08:25)
[2018-10-30] MEDS: LINAGLIPTIN 5 MG TABLET PO SCH (08:25)
[2018-10-30] MEDS: MAGNESIUM OXIDE 250 MG TABLET PO SCH ×2 (08:25→16:06)
[2018-10-30] MEDS: OMEGA-3 FATTY ACIDS/FISH OIL CAPSULE PO SCH ×3 (08:26→16:06)
[2018-10-30] MEDS: ASPIRIN EC 81 MG TABLET.DR PO SCH (08:26)
[2018-10-30] MEDS: GLIMEPIRIDE 4 MG TABLET PO SCH (08:26)
[2018-10-30] MEDS: PIOGLITAZONE HCL 15 MG TABLET PO SCH (08:26)
[2018-10-30] MEDS: CARVEDILOL 3.125 MG TABLET PO SCH ×2 (08:27→16:06)
[2018-10-30] MEDS: LIDOCAINE 5% PATCH TD SCH (08:28)
[2018-10-30] MEDS: MULTIVITAMINS,THERAPEUTIC TABLET PO SCH (08:28)
[2018-10-30] MEDS: METFORMIN HCL 500 MG TABLET PO SCH (08:31)
[2018-10-30 09:25] VITALS: BP 152/63
[2018-10-30 14:56] VITALS: BP 139/67
[2018-10-30 16:06] VITALS: BP 139/67
== END 2018-10-30 16:45 | disposition home health service (06) | DRG 560 ==
PROVIDERS: ADMIT Physical Medicine & Rehabilitation Pain Medicine; ATTEND Physical Medicine & Rehabilitation Pain Medicine
DX: S22.42XD Multiple fractures of ribs, left side, subsequent encounter for fracture with routine healing (principal); D68.59 Other primary thrombophilia; E44.0 Moderate protein-calorie malnutrition; D69.6 Thrombocytopenia, unspecified; D72.829 Elevated white blood cell count, unspecified; W19.XXXD Unspecified fall, subsequent encounter; E11.9 Type 2 diabetes mellitus without complications; F03.90 Unspecified dementia, unspecified severity, without behavioral disturbance, psychotic disturbance, mood disturbance, and anxiety; I10 Essential (primary) hypertension; I35.0 Nonrheumatic aortic (valve) stenosis; R26.9 Unspecified abnormalities of gait and mobility; M19.90 Unspecified osteoarthritis, unspecified site; R53.81 Other malaise; S27.329D Contusion of lung, unspecified, subsequent encounter; E03.9 Hypothyroidism, unspecified; E78.5 Hyperlipidemia, unspecified; E83.42 Hypomagnesemia; I25.10 Atherosclerotic heart disease of native coronary artery without angina pectoris; M47.816 Spondylosis without myelopathy or radiculopathy, lumbar region; M48.02 Spinal stenosis, cervical region; M84.48XD Pathological fracture, other site, subsequent encounter for fracture with routine healing; Z87.820 Personal history of traumatic brain injury; M85.80 Other specified disorders of bone density and structure, unspecified site; Z91.81 History of falling; R29.6 Repeated falls; R26.81 Unsteadiness on feet; R79.89 Other specified abnormal findings of blood chemistry; Z68.22 Body mass index [BMI] 22.0-22.9, adult; D50.9 Iron deficiency anemia, unspecified
CPT/HCPCS: 36415; 70030-TC; 82652; 83550; 83735; 84100; 84443; 85025; A4663; J1815